=== PATIENT | female | born 1945 | race Caucasian/White ===

== ENCOUNTER 2018-10-15 14:59 | Inpatient (IN) ==
--- NOTE | 2018-10-15 15:38 | Emergency Department Note ---
Nausea/Vomiting/Diarrhea HPI - General Chief complaint: Nausea/Vomiting/Diarrhea Stated complaint: nausea, vomiting, weakness Time Seen by Provider: 10/15/18 15:36 Source: patient, family Mode of arrival: wheelchair Limitations: no limitations - History of Present Illness HPI Narrative: Patient has a 2 day history of nausea vomiting, even at the point where she was vomiting up bilious material. She states she is not able to eat or drink very much in fact has had very little in the way of liquids today. She states she is just not able to swallow them. She denies sore throat, denies chest pain feels a little bit short of breath. Has chills, generalized body aches but denies cough denies hemoptysis denies productive phlegm. No diarrhea, very few bowel movements in the last few days. She is status post cholecystectomy about 10 years ago. Also had a . Diabetic, currently on metformin and trajenta. Brought in by private vehicle. Just not doing well. Weak in general. She also has shoulder pain and aches for the last few days. Denies headache. She does have nausea. No history of colonoscopy. Never had EGD. MD complaint: nausea, vomiting - Related Data Home Medications Medication Instructions Recorded Confirmed Acetaminophen W/Codeine #3 1 tab PO QIDP PRN 01/14/16 01/19/17 [Tylenol #3] Allopurinol [Zylopriim] 300 mg PO DAILY 01/14/16 01/19/17 Aspirin [Adult Low Dose Aspirin EC] 1 tab PO DAILY 01/14/16 01/19/17 Cholecalciferol (Vitamin D3) 4,000 unit PO DAILY 01/14/16 01/19/17 [Vitamin D3] Gabapentin [Neurontin] 100 mg PO HS 01/14/16 01/19/17 Melatonin [Melatin] 6 mg PO HS 01/14/16 01/19/17 Promethazine HCl 25 - 50 mg PO BIDP PRN 01/14/16 01/19/17 Ranitidine HCl [Heartburn Relief] 150 mg PO HS 01/14/16 01/19/17 Simvastatin [Zocor] 20 mg PO HS 01/14/16 01/19/17 Tradjenta 5 mg PO DAILY 01/14/16 01/19/17 Verapamil [Calan Sr] 240 mg PO DAILY 01/14/16 01/19/17 buPROPion HCL [Bupropion HCl Sr] 150 mg PO DAILY 01/14/16 01/19/17 metFORMIN HCL [Fortamet] 1 tab PO BID 01/14/16 01/19/17 Lisinopril [Zestril] 20 mg PO DAILY 01/19/17 01/19/17 Allergies Allergy/AdvReac Type Severity Reaction Status Date / Time Penicillins Allergy Intermediate Rash Verified 10/15/18 15:02 Review of Systems All systems ED: reviewed and negative except as stated. 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 Absent: conjunctival injection ENT: normal exam, normal oropharynx, mucous membranes dry, normal external ear exam Neck: Present: normal inspection, full ROM. Absent: tenderness, meningismus, lymphadenopathy Chest: Present: normal inspection, symmetric chest wall rise Respiratory: Present: normal lung sounds bilaterally. Absent: respiratory distress Cardiovascular: Present: regular rate, normal rhythm, normal heart sounds Abdominal: Present: soft, tenderness, diminished bowel sounds Abdominal tenderness: Present: epigastrium, mild Rectal: Present: deferred Extremities: Present: normal inspection, full ROM Back: Present: normal inspection. Absent: CVA tenderness (R), CVA tenderness (L), vertebral tenderness Neurological: Present: alert, oriented X3, CN II-XII intact Psychiatric: Present: normal affect Skin: Present: warm, dry, normal color, pallor Course - Reevaluation(s) Reevaluation #1: Patient was started on IV fluids appeared red concerned that maybe she had an esophageal stricture or foreign body. We did do a barium swallow and this did s how a presbyesophagus, but not any significant stenosis. We rechecked her potassium and it was still high at 6.6. At this point she will need to be admitted to the hospital for hyperkalemia, chronic renal disease, acute on chronic. Associated with dehydration. Vital Signs Temperature 97.5 F 10/15/18 15:00 Pulse Rate 94 H 10/15/18 15:00 Respiratory Rate 20 10/15/18 15:00 Blood Pressure 115/45 10/15/18 15:00 Pulse Oximetry (%) 97 10/15/18 15:00 Temperature 97.5 F 10/15/18 15:00 Pulse Rate 84 10/15/18 16:39 Respiratory Rate 19 10/15/18 16:41 Blood Pressure 100/44 10/15/18 16:39 Pulse Oximetry (%) 88 L 10/15/18 16:39 Nausea/Vomiting/Diarrhea - [facility] Narrative Medical decision making narrative: Spoke with Dr. Perez regarding hospitalization. Final diagnosis is hyperkalemia. - Lab Data Result diagrams: 10/15/18 15:23 10/15/18 15:23 Lab Results 10/15/18 10/15/18 10/15/18 Range/Units 15:23 15:23 15:23 WBC 6.4 (4.5-11.0) K/mcL RBC 2.31 L (4.00-5.20) M/mcL Hgb 8.5 L (12.0-15.0) g/dL Hct 26.4 L (36.0-48.0) % POC Hct (36.0-48.0) % MCV 114.5 H (80.0-100.0) fL MCH 36.8 H (26.0-34.0) pg MCHC 32.2 (31.0-36.0) g/dL RDW 22.3 H (11.5-14.5) % Plt Count 113 L (140-440) K/mcL MPV 7.7 (7.4-10.4) fL Gran % 83.8 H (38.0-78.0) % Lymph % (Auto) 9.9 L (15.5-49.0) % Cand[place] % (Auto) 6.1 (1.0-12.0) % Eos % (Auto) 0.1 (0.0-7.0) % Baso % (Auto) 0.1 (0.0-2.0) % Gran # 5.4 (1.8-8.0) K/mcL Lymph # (Auto) 0.6 L (1.5-4.8) K/mcL Cand[place] # (Auto) 0.4 (0.1-0.9) K/mcL Eos # (Auto) 0 (0.0-0.7) K/mcL Baso # (Auto) 0 (0.0-0.3) K/mcL POC Sodium (133-145) mmol/L Sodium 139 (133-145) mmol/L POC Potassium (3.3-5.1) mmol/L Potassium 6.5 H* (3.3-5.1) mmol/L POC Chloride (96-108) mmol/L Chloride 106 (96-108) mmol/L Carbon Dioxide 12 L (22-30) mmol/L POC Total CO2 (22-30) mmol/L Anion Gap 21.0 H (8-16) POC BUN (8-23) mg/dl BUN 47 H (8-23) mg/dl Creatinine 3.3 H (0.6-1.1) mg/dl POC Creatinine (0.6-1.1) mg/dl GFR Calculation 13 Glucose 142 H (70-105) mg/dL POC Glucose (70-105) mg/dL Calcium 8.8 (8.6-10.4) mg/dl POC WB Ioniz Calcium (1.16-1.32) mmol/L Total Bilirubin 1.8 H (0.0-1.0) mg/dL AST 58 H (0-37) U/l ALT 28 (0-40) U/l Alkaline Phosphatase 140 H (39-117) U/L Troponin T < 0.01 (0-0.03) ng/ml Total Protein 7.0 (5.9-8.4) gm/dL Albumin 3.8 (3.2-5.2) gm/dL Globulin 3.2 (2.2-3.7) gm/dL Albumin/Globulin Ratio 1.2 (1.0-2.3) 10/15/18 Range/Units 16:52 WBC (4.5-11.0) K/mcL RBC (4.00-5.20) M/mcL Hgb (12.0-15.0) g/dL Hct (36.0-48.0) % POC Hct 27.0 L (36.0-48.0) % MCV (80.0-100.0) fL MCH (26.0-34.0) pg MCHC (31.0-36.0) g/dL RDW (11.5-14.5) % Plt Count (140-440) K/mcL MPV (7.4-10.4) fL Gran % (38.0-78.0) % Lymph % (Auto) (15.5-49.0) % Candler % (Auto) (1.0-12.0) % Eos % (Auto) (0.0-7.0) % Baso % (Auto) (0.0-2.0) % Gran # (1.8-8.0) K/mcL Lymph # (Auto) (1.5-4.8) K/mcL Candler # (Auto) (0.1-0.9) K/mcL Eos # (Auto) (0.0-0.7) K/mcL Baso # (Auto) (0.0-0.3) K/mcL POC Sodium 139 (133-145) mmol/L Sodium (133-145) mmol/L POC Potassium 6.6 H* (3.3-5.1) mmol/L Potassium (3.3-5.1) mmol/L POC Chloride 111 H (96-108) mmol/L Chloride (96-108) mmol/L Carbon Dioxide (22-30) mmol/L POC Total CO2 15 L (22-30) mmol/L Anion Gap (8-16) POC BUN 43 H (8-23) mg/dl BUN (8-23) mg/dl Creatinine (0.6-1.1) mg/dl POC Creatinine 3.6 H (0.6-1.1) mg/dl GFR Calculation Glucose (70-105) mg/dL POC Glucose 140 H (70-105) mg/dL Calcium (8.6-10.4) mg/dl POC WB Ioniz Calcium 1.09 L (1.16-1.32) mmol/L Total Bilirubin (0.0-1.0) mg/dL AST (0-37) U/l ALT (0-40) U/l Alkaline Phosphatase (39-117) U/L Troponin T (0-0.03) ng/ml Total Protein (5.9-8.4) gm/dL Albumin (3.2-5.2) gm/dL Globulin (2.2-3.7) gm/dL Albumin/Globulin Ratio (1.0-2.3) Disposition Pt seen by GRAVITY PROSPECTING OBSERVER HELPER/PA only: No Clinical Impression: Hyperkalemia Disposition: Xfer As Inpt ([facility]) Condition: Fair Referrals: Patito Davila MD [Primary Care Provider] -
[2018-10-15] MEDS ORDERED: ONDANSETRON 4 MG/2 ML VIAL IV ONE (15:40)
[2018-10-15] MEDS ORDERED: LACTATED RINGERS 1,000 ML IV ONE (15:40)
[2018-10-15 15:52] LABS: Basophils # (Auto) 0 K/mcL (0.0-0.3); Basophils % (Auto) 0.1 % (0.0-2.0); Eosinophils # (Auto) 0 K/mcL (0.0-0.7); Eosinophils % (Auto) 0.1 % (0.0-7.0); Granulocytes % (Auto) 83.8 % (38.0-78.0); Hematocrit 26.4 % (36.0-48.0); Hemoglobin 8.5 g/dL (12.0-15.0); Lymphocytes # (Auto) 0.6 K/mcL (1.5-4.8); Lymphocytes % (Auto) 9.9 % (15.5-49.0); Mean Cell Volume 114.5 fL (80.0-100.0); Mean Corpuscular HGB Conc 32.2 g/dL (31.0-36.0); Mean Platelet Volume 7.7 fL (7.4-10.4); Monocytes # (Auto) 0.4 K/mcL (0.1-0.9); Monocytes % (Auto) 6.1 % (1.0-12.0); Platelet Count 113 K/mcL (140-440); RBC 2.31 M/mcL (4.00-5.20); Red Cell Distribution Width 22.3 % (11.5-14.5); WBC 6.4 K/mcL (4.5-11.0)
[2018-10-15 16:15] LABS: ALT/SGPT 28 U/l (0-40); AST/SGOT 58 U/l (0-37); Albumin 3.8 gm/dL (3.2-5.2); Albumin/Globulin Ratio 1.2 (1.0-2.3); Alkaline Phosphatase 140 U/L (39-117); Bilirubin,Total 1.8 mg/dL (0.0-1.0); Blood Urea Nitrogen 47 mg/dl (8-23); Calcium 8.8 mg/dl (8.6-10.4); Carbon Dioxide 12 mmol/L (22-30); Chloride 106 mmol/L (96-108); Globulin 3.2 gm/dL (2.2-3.7); Glomerular Filtration Rate 13; Glucose 142 mg/dL (70-105); Potassium 6.5 mmol/L (3.3-5.1); Sodium 139 mmol/L (133-145)
[2018-10-15] MEDS ORDERED: 0.9 % SODIUM CHLORIDE 1,000 ML IV ONE (16:27)
[2018-10-15] MEDS ORDERED: INSULIN REGULAR, HUMAN 1 UNIT/0.01 ML UNIT IV ONE (16:35)
[2018-10-15] MEDS ORDERED: DEXTROSE 50% 50 ML SYRINGE IV ONE (16:36)
[2018-10-15] MEDS ORDERED: DEXTROSE 5%-1/4NS 1,000 ML IV SCH (16:45)
--- NOTE | 2018-10-15 16:59 | XRay Report ---
CLINICAL INFORMATION: Dysphagia chest pain nausea COMPARISON: Chest x-ray 06/30/2011. FINDINGS: The heart is mildly enlarged. Mediastinum is unremarkable. The pulmonary vessels are mildly distended and there is minimal interstitial edema throughout both lungs. Small bilateral pleural effusions noted IMPRESSION: Mild CHF Interpreted and Authenticated by: Severiano Rossi 10/15/18
[2018-10-15] MEDS ORDERED: CALCIUM GLUCONATE 7 MEQ in DEXTROSE 5% IN WATER 50 ML IV ONE (17:03)
[2018-10-15] MEDS ORDERED: SODIUM POLYSTYRENE SULFONATE 15 GM/60 ML SUSPENSION PO ONE (17:04)
[2018-10-15 17:05] LABS: POC Blood Urea Nitrogen 43 mg/dl (8-23); POC CO2 15 mmol/L (22-30); POC Calcium, Ionized 1.09 mmol/L (1.16-1.32); POC Chloride 111 mmol/L (96-108); POC Creatinine 3.6 mg/dl (0.6-1.1); POC Glucose, Random 140 mg/dL (70-105); POC Potassium 6.6 mmol/L (3.3-5.1); POC Sodium 139 mmol/L (133-145)
--- NOTE | 2018-10-15 17:14 | XRay Report ---
CLINICAL INFORMATION: Nausea TECHNIQUE: Single contrast barium was ingested under fluoroscopic observation while spot films were obtained of the esophagus during deglutition in both the upright. FINDINGS: Tongue elevation and palate depression are normal resulting in propulsion of the barium bolus into the pharynx. The nasopharyngeus closes normally. Pharyngeal stripping and cricopharyngeal opening. The primary peristaltic wave is interrupted by multiple tertiary contractions patible with presbyesophagus. The lower esophageal sphincter opens normally. The epiglottis and vocal cords close normally - no evidence of descending aspiration. There is a Schatzki's ring at the GE junction which narrows the esophageal lumen by less than 20%. The esophagus is, otherwise, normal in contour and caliber without evidence of esophagitis or focal lesion. No hiatal hernia or reflux could be induced. IMPRESSION: 1. Moderate presbyesophagus 2. Schatzki's ring at the GE junction resulting in only mild luminal narrowing - 20% Interpreted and Authenticated by: Severiano Rossi 10/15/18
[2018-10-15] MEDS ORDERED: CALCIUM GLUCONATE 4.65 MEQ/10 ML VIAL ONE (17:15)
[2018-10-15] MEDS ORDERED: SODIUM BICARBONATE ADULT 50 MEQ/50 ML SYRINGE IV STA (18:01)
--- NOTE | 2018-10-15 18:47 | Internal Med History&Physical ---
Medical - H&P: HPI Patient information: Note initiated : 10/15/18 at 6:41 pm Service Date, if different from initiated Date: [] Patient: Sissy Isaac 73 y/o F admitted on for nausea, vomiting, weakness. Chief Complaint: [] History of present illness: Ms. Isaac is a 73 year old F The ED not feeling well complaining of weakness and nausea. Patient states that she went to bed feeling fine on Monday night. However early Monday morning she woke up and had to get help to go the bathroom she is also nauseous. Throughout the day as she did have some vomiting earlier in the day which she describes bilious. But in the weakness improved a little bit and later that night she was able to keep down some shrimp. However the next morning she had a similar symptoms very weak and nauseous and had some vomiting denies any blood in her vomit or her stools. She denies any abdominal pain. Denies chest pain. Denies any recent sick contacts or traveling. She was found in the ED to have elevated creatinine above baseline as well as hyperkalemia with a potassium 6.5. EKG no spiked T waves does have a prolonged QRS, unknown baseline, troponin was unremarkable. She does complain of some foot swelling the past couple months. And some occasional shortness of breath. She takes metformin and Tradjenta for diabetes. Barium swallow was done in the ED which was unremarkable chest x-ray with some pulmonary edema. Denies any cardiac history. Is not on any potassium supplements, but is on lisinopril. Review of Systems: Pertinent positives as above. Denies headache/fever/chills/chest or abdominal pain/diarrhea. Remaining 10 point review of system reviewed negative Medical - H&P: PMH Medical history: Past medical history: Diabetes with neuropathy Obesity Chronic kidney disease IIIB Hypertension/hyperlipidemia Chronic low back pain GERD Depression Gout Iron deficiency anemia Past surgical history: Cholecystectomy tonsillectomy Family history: Mother heart disease father is healthy Social history: Patient quit smoking 2007 denies alcohol use ablates with cane lives at home with Medical - H&P: Meds Home Medications Medication Instructions Recorded Confirmed Type Acetaminophen W/Codeine #3 1 tab PO QIDP PRN 01/14/16 01/19/17 History [Tylenol #3] Allopurinol [Zylopriim] 300 mg PO DAILY 01/14/16 01/19/17 History Aspirin [Adult Low Dose Aspirin EC] 1 tab PO DAILY 01/14/16 01/19/17 History Cholecalciferol (Vitamin D3) 4,000 unit PO DAILY 01/14/16 01/19/17 History [Vitamin D3] Gabapentin [Neurontin] 100 mg PO HS 01/14/16 01/19/17 History Melatonin [Melatin] 6 mg PO HS 01/14/16 01/19/17 History Promethazine HCl 25 - 50 mg PO BIDP PRN 01/14/16 01/19/17 History Ranitidine HCl [Heartburn Relief] 150 mg PO HS 01/14/16 01/19/17 History Simvastatin [Zocor] 20 mg PO HS 01/14/16 01/19/17 History Tradjenta 5 mg PO DAILY 01/14/16 01/19/17 History Verapamil [Calan Sr] 240 mg PO DAILY 01/14/16 01/19/17 History buPROPion HCL [Bupropion HCl Sr] 150 mg PO DAILY 01/14/16 01/19/17 History metFORMIN HCL [Fortamet] 1 tab PO BID 01/14/16 01/19/17 History Lisinopril [Zestril] 20 mg PO DAILY 01/19/17 01/19/17 History Allergies Allergy/AdvReac Type Severity Reaction Status Date / Time Penicillins Allergy Intermediate Rash Verified 10/15/18 15:02 Medical - H&P: Exam - Constitutional Vitals: Temp Pulse Resp BP Pulse Ox 97.5 F 103 H 19 136/56 96 10/15/18 15:00 10/15/18 17:46 10/15/18 17:46 10/15/18 17:46 10/15/18 17:46 Exam: General: Alert, Awake, No acute Distress, obese Eyes/N/T: EOMI, PEERL, Head/Neck: neck supple, normocephalic atraumatic CV: RRR, No murmurs, normal s1/s2 Pulm: Bibasilar rales, no wheezing Abd: soft, nontender, +BS x4 Ext: no clubbing/cyanosis, 2+ b/l LE edema Neuro: Alert, no focal deficits, moves all extremities, CN 2-12 grossly intact, symmetrical strength b/l upper/lower, sensations intact b/l upper/lower Skin: warm/dry Medical - H&P: Reslt - Labs CBC & Chem 7: 10/15/18 15:23 10/15/18 15:23 Labs: Short CBC 10/15/18 Range/Units 15:23 WBC 6.4 (4.5-11.0) K/mcL Hgb 8.5 L (12.0-15.0) g/dL Hct 26.4 L (36.0-48.0) % Plt Count 113 L (140-440) K/mcL BMP 10/15/18 15:23 Sodium 139 Potassium 6.5 H* Chloride 106 Carbon Dioxide 12 L BUN 47 H Creatinine 3.3 H Glucose 142 H Calcium 8.8 Cardiac Enzymes 10/15/18 Range/Units 15:23 Troponin T < 0.01 (0-0.03) ng/ml Liver Function 10/15/18 Range/Units 15:23 Total Bilirubin 1.8 H (0.0-1.0) mg/dL AST 58 H (0-37) U/l ALT 28 (0-40) U/l Alkaline Phosphatase 140 H (39-117) U/L Albumin 3.8 (3.2-5.2) gm/dL - Impressions Chest x-ray pulmonary edema Medical - H&P: A/P - Narrative A/P Narrative: A: *Hyperkalemia: 2/2 meds & SHERRELL *SHERRELL on CKD IIIb: *Anemia, chronic [place], but macrocytic: no gross bleeding -Has received IV iron by 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
[2018-10-15] MEDS ORDERED: PROCHLORPERAZINE 10 MG/2 ML VIAL IV PRN (19:56)
[2018-10-15] MEDS ORDERED: IPRATROPIUM/ALBUTEROL 3 ML AMPUL.NEB NEB PRN (19:56)
[2018-10-15] MEDS ORDERED: LACTULOSE 20 GM/30 ML ORAL.SOL PO PRN (19:56)
[2018-10-15] MEDS ORDERED: SENNOSIDES 1 TABLET PO PRN (19:56)
[2018-10-15] MEDS ORDERED: DEXTROSE 31 GM ORAL.SUSP PO PRN (19:56)
[2018-10-15] MEDS ORDERED: ACETAMINOPHEN 325 MG TABLET PO PRN (19:56)
[2018-10-15] MEDS ORDERED: ONDANSETRON 4 MG/2 ML VIAL IV PRN (19:56)
[2018-10-15] MEDS ORDERED: POLYETHYLENE GLYCOL 3350 17 GM PACKET PO PRN (19:56)
[2018-10-15] MEDS ORDERED: FUROSEMIDE 100 MG/10 ML VIAL IV ONE (19:56)
[2018-10-15] MEDS ORDERED: SODIUM BICARBONATE 50 MEQ/50 ML VIAL IV STA (19:56)
[2018-10-15] MEDS ORDERED: DEXTROSE 50% 50 ML VIAL IV PRN (19:56)
[2018-10-15] MEDS ORDERED: FAMOTIDINE 20 MG TABLET PO SCH (21:00)
[2018-10-15] MEDS: INSULIN LISPRO 1 UNIT/0.01 ML UNIT SQ SCH (21:00)
[2018-10-15] MEDS: DOCUSATE SODIUM 100 MG CAPSULE PO SCH (21:00)
[2018-10-15] MEDS: HEPARIN 5,000 UNIT/ML VIAL SQ SCH (21:00)
[2018-10-15] MEDS: 0.9 % SODIUM CHLORIDE 10 ML SYRINGE IV SCH (21:00)
--- NOTE | 2018-10-16 03:31 | Ultrasound Report ---
CLINICAL INFORMATION: Acute renal failure COMPARISON: 01/27/2011 renal ultrasound FINDINGS: Both kidneys are normal in size, position and configuration: The right is 9.6 x 4.7 cm and the left 9.6 x 4.2 cm. Parenchymal echotexture is moderately elevated compatible with medical renal disease. No focal renal lesions - no stones masses or hydronephrosis. Urinary bladder volume is 219 cc. Patient was unable to void IMPRESSION: Moderately hyperechoic kidneys compatible with medical renal disease. Interpreted and Authenticated by: Severiano Rossi 10/16/18
[2018-10-16] MEDS: 0.9 % SODIUM CHLORIDE 10 ML SYRINGE IV SCH ×3 (05:14→20:21)
[2018-10-16 05:56] LABS: Basophils # (Auto) 0 K/mcL (0.0-0.3); Basophils % (Auto) 0.1 % (0.0-2.0); Eosinophils # (Auto) 0 K/mcL (0.0-0.7); Eosinophils % (Auto) 0.1 % (0.0-7.0); Granulocytes % (Auto) 82.4 % (38.0-78.0); Hematocrit 23.4 % (36.0-48.0); Hemoglobin 7.6 g/dL (12.0-15.0); Lymphocytes # (Auto) 0.5 K/mcL (1.5-4.8); Lymphocytes % (Auto) 12.1 % (15.5-49.0); Mean Cell Volume 114.1 fL (80.0-100.0); Mean Corpuscular HGB Conc 32.5 g/dL (31.0-36.0); Mean Platelet Volume 7.9 fL (7.4-10.4); Monocytes # (Auto) 0.2 K/mcL (0.1-0.9); Monocytes % (Auto) 5.3 % (1.0-12.0); Platelet Count 69 K/mcL (140-440); RBC 2.05 M/mcL (4.00-5.20); Red Cell Distribution Width 22.2 % (11.5-14.5); WBC 4.4 K/mcL (4.5-11.0)
[2018-10-16 06:00] LABS: ALT/SGPT 43 U/l (0-40); AST/SGOT 98 U/l (0-37); Albumin 3.2 gm/dL (3.2-5.2); Alkaline Phosphatase 118 U/L (39-117); Bilirubin,Direct 0.5 mg/dL (0.0-0.3); Bilirubin,Total 1.3 mg/dL (0.0-1.0); Blood Urea Nitrogen 49 mg/dl (8-23); Calcium 8.4 mg/dl (8.6-10.4); Carbon Dioxide 22 mmol/L (22-30); Chloride 107 mmol/L (96-108); Gamma Glutamyl Transpeptidase 205 U/L (5-36); Globulin 3.1 gm/dL (2.2-3.7); Glomerular Filtration Rate 14; Glucose 149 mg/dL (70-105); Lactate Dehydrogenase 284 U/L (94-250); Magnesium 1.8 mg/dL (1.6-2.5); Phosphorous 3.5 mg/dL (2.7-4.5); Potassium 4.4 mmol/L (3.3-5.1); Sodium 143 mmol/L (133-145); Triglycerides 78 mg/dl (<150); Uric Acid 6.1 mg/dL (2.5-8.0)
[2018-10-16] MEDS ORDERED: PROMETHAZINE 25 MG TABLET PO PRN ×2 (07:39→11:06)
[2018-10-16] MEDS ORDERED: ACETAMINOPHEN W/CODEINE #3 1 TABLET PO PRN (07:39)
--- NOTE | 2018-10-16 07:55 | Internal Med Progress Note ---
Medical - PN: Subj Patient information: Note initiated : 10/16/18 at 7:42 am Service Date, if different from initiated Date: [] Patient: Sissy Isaac 73 y/o F admitted on 10/15/18 for nausea, vomiting, weakness. Chief Complaint: [] Interval history: Ms. Isaac is a 73 year old F The ED not feeling well complaining of weakness and nausea. Patient states that she went to bed feeling fine on Monday night. However early Monday morning she woke up and had to get help to go the bathroom she is also nauseous. Throughout the day as she did have some vomiting earlier in the day which she describes bilious. But in the weakness improved a little bit and later that night she was able to keep down some shrimp. However the next morning she had a similar symptoms very weak and nauseous and had some vomiting denies any blood in her vomit or her stools. She denies any abdominal pain. Denies chest pain. Denies any recent sick contacts or traveling. She was found in the ED to have elevated creatinine above baseline as well as hyperkalemia with a potassium 6.5. EKG no spiked T waves does have a prolonged QRS, unknown baseline, troponin was unremarkable. She does complain of some foot swelling the past couple months. And some occasional shortness of breath. She takes metformin and Tradjenta for diabetes. Barium swallow was done in the ED which was unremarkable chest x-ray with some pulmonary edema. Denies any cardiac history. Is not on any potassium supplements, but is on lisinopril. 10/16 Feeling better today. Diuresed well last night however she drank quite a bit. Diarrhea after Kayexalate. Slept okay. No other events. Review of Systems: denies headache/fever/chills/nausea/vomiting/chest or abdominal pain/cough/dyspnea. Otherwise see above. - Constitutional Vitals: Vital Signs Temp Pulse Resp BP Pulse Ox 100.0 F H 112 H 26 H 104/54 93 10/16/18 06:01 10/16/18 02:00 10/16/18 06:01 10/16/18 06:01 10/16/18 06:01 Period Temp Pulse Resp BP Sys/Helms Pulse Ox Last 24 Hr 97.5 F-100.7 F 79-119 16-32 75-136/37-100 82-99 Intake and Output 10/15/18 10/16/18 10/16/18 21:59 05:59 13:59 Intake Total 1065.0537 710 Output Total 340 1050 130 Balance 725.0537 -340 -130 Weight 91.2 kg Intake & Output: Intake & Output 10/15/18 10/16/18 10/16/18 21:59 05:59 13:59 Intake Total 1065.0537 710 Output Total 340 1050 130 Balance 725.0538 -340 -130 Weight 91.2 kg Intake: IV 1065.0537 Sodium Chloride 0.9% 1,000 ml @ 1000 Wide Open IV BOLUS ONE Rx#: [id number] Calcium Gluconate 7 Meq In 65.0537 Dextrose 5% in Water 50 ml @ 200 mls/hr IV ONCE ONE Rx#: [id number] Oral 710 Output: Urine Catheter Amount 340 1050 130 Other: Urine Appearance Clear Clear Uretheral (Easley) Clear Urine Color Dark Yellow Bright Yellow Bright Yellow Uretheral (Easley) Dark Yellow Bright Yellow Stool Size Moderate Copious Stool Color Brown Brown Yellow Stool Consistency Soft Liquid Formed Watery Liquid Watery # Bowel Movements 1 1 # of times incontinent of 1 Bowels Exam: General: Alert, Awake, No acute Distress, obese Eyes/N/T: EOMI, , Head/Neck: neck supple, CV: RRR, No murmurs, Pulm: Bibasilar rales much improved, no wheezing Abd: soft, nontender, +BS x4 Ext: no clubbing/cyanosis, 1+ b/l LE edema improved Neuro: Alert, no focal deficits, moves all extremities, Skin: warm/dry Medical - PN: Obj Da - Labs CBC & Chem 7: 10/16/18 03:21 10/16/18 03:21 Labs: Abnormal Lab Results 10/16/18 10/16/18 10/15/18 03:21 03:21 20:00 WBC 4.4 L RBC 2.05 L Hgb 7.6 L Hct 23.4 L POC Hct MCV 114.1 H MCH 37.0 H RDW 22.2 H Plt Count 69 L Gran % 82.4 H Lymph % (Auto) 12.1 L Lymph # (Auto) 0.5 L POC Potassium Potassium 5.7 H POC Chloride Carbon Dioxide POC Total CO2 Anion Gap POC BUN BUN 49 H Creatinine 3.1 H POC Creatinine Glucose 149 H POC Glucose Calcium 8.4 L POC WB Ioniz Calcium Total Bilirubin 1.3 H Direct Bilirubin 0.5 H GGT 205 H AST 98 H ALT 43 H Alkaline Phosphatase 118 H Lactate Dehydrogenase 284 H Vitamin B12 10/15/18 10/15/18 10/15/18 16:52 15:23 15:23 WBC RBC 2.31 L Hgb 8.5 L Hct 26.4 L POC Hct 27.0 L MCV 114.5 H MCH 36.8 H RDW 22.3 H Plt Count 113 L Gran % 83.8 H Lymph % (Auto) 9.9 L Lymph # (Auto) 0.6 L POC Potassium 6.6 H* Potassium 6.5 H* POC Chloride 111 H Carbon Dioxide 12 L POC Total CO2 15 L Anion Gap 21.0 H POC BUN 43 H BUN 47 H Creatinine 3.3 H POC Creatinine 3.6 H Glucose 142 H POC Glucose 140 H Calcium POC WB Ioniz Calcium 1.09 L Total Bilirubin 1.8 H Direct Bilirubin GGT AST 58 H ALT Alkaline Phosphatase 140 H Lactate Dehydrogenase Vitamin B12 10/15/18 10:30 WBC RBC Hgb Hct POC Hct MCV MCH RDW Plt Count Gran % Lymph % (Auto) Lymph # (Auto) POC Potassium Potassium POC Chloride Carbon Dioxide POC Total CO2 Anion Gap POC BUN BUN Creatinine POC Creatinine Glucose POC Glucose Calcium POC WB Ioniz Calcium Total Bilirubin Direct Bilirubin GGT AST ALT Alkaline Phosphatase Lactate Dehydrogenase Vitamin B12 150.0 L Meds: Medications Acetaminophen (Tylenol) 650 mg PO Q6HP PRN PRN Reason: PAIN/FEVER > 101 Albuterol/Ipratropium (Duoneb) 3 ml NEB Q4HP PRN PRN Reason: Shortness Of Breath Dextrose (Dextrose 50%) 0 ml IV UD PRN PRN Reason: Hypoglycemia Diagnostic Test (Pha) (Accu-Chek) 1 each FS ACHS [facility] Last Admin: 10/15/18 21:00 Dose: 1 each Documented by: Docusate Sodium (Colace) 100 mg PO BID [facility] Last Admin: 10/15/18 21:00 Dose: 100 mg Documented by: Famotidine (Pepcid) 20 mg PO HS [facility] Last Admin: 10/15/18 21:00 Dose: 20 mg Documented by: Glucose (Insta-Glucose) 15 gm PO PRN PRN PRN Reason: Hypoglycemia Heparin Sodium (Porcine) (Heparin) 5,000 unit SQ Q12 [facility] Last Admin: 10/15/18 21:00 Dose: 5,000 unit Documented by: Insulin Human Lispro (Humalog) 0 unit SQ ACHS [facility]; Protocol Last Admin: 10/15/18 21:00 Dose: Not Given Documented by: Lactulose (Cephulac) 10 gm PO DAILYP PRN PRN Reason: Constipation Ondansetron HCl (Zofran) 4 mg IV Q4HP PRN PRN Reason: Nausea And Vomiting Polyethylene Glycol (Miralax) 17 gm PO DAILYP PRN PRN Reason: Constipation Prochlorperazine (Compazine) 10 mg IV Q6HP PRN PRN Reason: Nausea And Vomiting Senna (Senokot) 2 tab PO HSP PRN PRN Reason: Constipation Sodium Chloride (Saline Flush) 10 ml IV Q8 [facility] Last Admin: 10/16/18 05:14 Dose: 10 ml Documented by: Medical - PN: A/P - Time Spent With Patient Total time spent is greater than 50% in coordination of care (as documented) at patient's floor/unit and/or counseling patient: - Narrative A/P Narrative: A: *Hyperkalemia: 2/2 meds & SHERRELL -REsovled *SHERRELL on CKD IIIb: -renal u/s -3.1<3.3 *Anemia, chronic [place], but macrocytic: no gross bleeding -Has received IV iron by her production department 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 *B12 Deficiency *Metabolic acidosis: resolved *Pulm/peripheral edema: concern for cardiomyopathy - *Fever (Tm 100.7 last night): unknown souce, UA pending, also PCT and man diff - *DM w/neuropathy: has been on metformin/tradjenta *Obesity: *HTN/HLD: on verapamil and ACEI *Chronic low back pain: *GERD: *Depression: *Gout: Allopurinol will need to be renally dosed *Thrombocytopenia, chronic: P: -s/p iv lasix, defer further until d/w Nephro, fluid restrict -nephro consult -echo & renal us/ -hold ACEI, hold verapamil (clarify she is taking) for low BP -Renally dose allopurinol and gabapentin -d/c metformin and upon discharge, cont Tradjenta outpt, SSI while inpt -b12 supp SQ -Cefepime/flagyl, pending infectious w/u. d/c abx if unremarkable -pt/ot -SSI -ppx: heparin(monitor platelets, if <50k then stop)/home h2 Medical - PN: Qual - Stroke Symptom Onset Unknown: No - VTE Deep Vein Thrombosis/Pulmonary Embolism Present on Admission: No
[2018-10-16] MEDS ORDERED: CYANOCOBALAMIN 1,000 MCG/ML VIAL IM SCH ×2 (08:00→12:00)
[2018-10-16] MEDS: INSULIN LISPRO 1 UNIT/0.01 ML UNIT SQ SCH ×4 (08:05→20:20)
[2018-10-16] MEDS ORDERED: buPROPion 150 MG TAB.XL.24H PO SCH (09:00)
[2018-10-16] MEDS ORDERED: ALLOPURINOL 100 MG TABLET PO SCH (09:00)
[2018-10-16] MEDS ORDERED: CEFEPIME 1 GM VIAL IV SCH (09:00)
--- NOTE | 2018-10-16 09:25 | Nephrology Progress Note ---
Subjective Patient information: Note initiated : 10/16/18 at 9:23 am Service Date, if different from initiated Date: [] Patient: Sissy Isaac 73 y/o F admitted on 10/15/18 for nausea, vomiting, weakness. Chief Complaint: Reports that she is breathing a little bit better. Objective - Vital Signs Vital signs: Vital Signs Temp Pulse Pulse Resp BP BP Pulse Ox 10/16/18 06:01 100.0 F H 26 H 104/54 93 10/16/18 05:00 100.0 F H 21 103/53 96 10/16/18 04:00 99.9 F H 23 H 106/51 95 10/16/18 03:02 100.1 F H 21 108/55 95 10/16/18 02:00 100.0 F H 112 H 18 91/46 95 10/16/18 01:31 99.9 F H 21 93/46 95 10/16/18 01:00 100.0 F H 17 91/43 95 10/16/18 00:00 100.0 F H 115 H 21 97/45 94 10/15/18 23:07 117 H 18 93 10/15/18 23:05 100.1 F H 117 H 26 H 106/51 94 10/15/18 22:21 100.3 F H 119 H 27 H 94/51 98 10/15/18 22:05 100.1 F H 117 H 17 85/42 96 10/15/18 22:04 100.1 F H 116 H 22 90/44 94 10/15/18 22:01 100.1 F H 116 H 25 H 75/39 91 10/15/18 20:01 115 H 20 110/46 93 10/15/18 19:56 100.7 F H 114 H 23 H 111/37 92 10/15/18 19:55 115/49 10/15/18 19:39 100.7 F H 112 H 20 111/37 92 10/15/18 19:31 21 115/49 10/15/18 19:16 23 H 99/53 10/15/18 19:04 22 108/89 10/15/18 19:01 27 H 106/66 10/15/18 18:46 26 H 106/54 10/15/18 18:31 108 H 25 H 118/95 92 10/15/18 18:16 108 H 22 127/100 94 10/15/18 18:03 107 H 29 H 109/47 96 10/15/18 17:46 103 H 19 136/56 96 10/15/18 17:31 102 H 25 H 119/50 96 10/15/18 17:23 101 H 21 115/58 96 10/15/18 17:15 100 H 24 H 96/77 98 10/15/18 16:41 19 10/15/18 16:39 84 32 H 100/44 88 L 10/15/18 16:31 81 16 79/60 95 10/15/18 16:16 79 18 96/84 94 10/15/18 16:01 82 17 91/46 95 10/15/18 15:46 19 84/69 10/15/18 15:31 95 H 27 H 100/57 99 10/15/18 15:16 103 H 17 99/43 82 L 10/15/18 15:12 96 H 19 94/56 99 10/15/18 15:00 97.5 F 94 H 20 115/45 97 Intake and Output 10/15/18 10/16/18 10/16/18 21:59 05:59 13:59 Intake Total 1065.0991 710 120 Output Total 340 1050 130 Balance 503.8587 -340 -10 Intake: IV 1065.0537 Sodium Chloride 0.9% 1,000 ml @ 1000 Wide Open IV BOLUS ONE Rx#: [id number] Calcium Gluconate 7 Meq In 65.0537 Dextrose 5% in Water 50 ml @ 200 mls/hr IV ONCE ONE Rx#: [id number] Oral 710 120 Output: Urine Catheter Amount 340 1050 130 Other: Meal Breakfast Percent of Meal Consumed 75% Feeding Ability Assist with Tray Set Up Urine Appearance Clear Clear Uretheral (Easley) Clear Urine Color Dark Yellow Bright Yellow Bright Yellow Uretheral (Easley) Dark Yellow Bright Yellow Stool Size Moderate Copious Small Stool Color Brown Brown Brown Yellow Yellow Green Stool Consistency Soft Liquid Liquid Formed Watery Watery Liquid Loose Watery # Bowel Movements 1 1 1 # of times incontinent of 1 Bowels Weight 201 lb 1 oz Intake & Output: Intake & Output 10/15/18 10/16/18 10/16/18 21:59 05:59 13:59 Intake Total 1065.0537 710 120 Output Total 340 1050 130 Balance 725.0537 -340 -10 Weight 201 lb 1 oz Intake: IV 1065.0537 Sodium Chloride 0.9% 1,000 ml @ 1000 Wide Open IV BOLUS ONE Rx#: [id number] Calcium Gluconate 7 Meq In 65.0537 Dextrose 5% in Water 50 ml @ 200 mls/hr IV ONCE ONE Rx#: [id number] Oral 710 120 Output: Urine Catheter Amount 340 1050 130 Other: Meal Breakfast Percent of Meal Consumed 75% Feeding Ability Assist with Tray Set Up Urine Appearance Clear Clear Uretheral (Easley) Clear Urine Color Dark Yellow Bright Yellow Bright Yellow Uretheral (Easley) Dark Yellow Bright Yellow Stool Size Moderate Copious Small Stool Color Brown Brown Brown Yellow Yellow Green Stool Consistency Soft Liquid Liquid Formed Watery Watery Liquid Loose Watery # Bowel Movements 1 1 1 # of times incontinent of 1 Bowels - General Appearance General appearance: well-nourished EENT: ATNC Neck: no JVD Respiratory: no kyphosis Cardiology: no murmurs, edema Gastrointestinal: normoactive bowel sounds - Lab 10/16/18 03:21 10/16/18 03:21 Most recent lab results Calcium 8.4 mg/dl (8.6-10.4) L 10/16/18 03:21 Phosphorus 3.5 mg/dL (2.7-4.5) 10/16/18 03:21 Magnesium 1.8 mg/dL (1.6-2.5) 10/16/18 03:21 Assessment and Plan (1) Hyperkalemia Status: Acute Comment: SHERRELL. Not clear what the etiology is. Lisinopril is on hold and the creatinine might be slightly better. US is ok. Urine tests pending.
--- NOTE | 2018-10-16 09:29 | XRay Report ---
CLINICAL INFORMATION: CHF - follow-up COMPARISON: 10/15/2018 FINDINGS: Moderate cardiomegaly is unchanged. Mediastinum is unremarkable. The pulmonary vessels have decreased slightly and are only mildly distended. Interstitial edema has almost cleared. Mild bibasilar atelectasis noted. IMPRESSION: Minimal CHF - improving Mild bibasilar atelectasis - new Interpreted and Authenticated by: Severiano Rossi 10/16/18
[2018-10-16 09:37] LABS: Appearance,Urine CLEAR; Bacteria,Urine 0 /hpf (0); Bilirubin,Urine NEG (NEG); Color,Urine YELLOW; Culture Indicated,Urine YES; Glucose,Urine (UA) NEGATIVE (NEG); Ketones,Urine NEG (NEG); Leukocyte Esterase,Urine NEG /uL (NEG); Mucus,Urine FEW /hpf (0); Nitrate,Urine NEG (NEG); Protein,Urine NEG (NEG); Specific Gravity,Urine 1.011 (1.000-1.035); Urine Amorphous Crystals FEW /hpf (0); Urine Blood >=1.0 mg/dL (<0.03); Urine Hyaline Cast 1 /lpf (0-2); Urine RBC 84 /hpf (0-1); Urine Squamous Epithelial Cell 0 /hpf (0-4); Urine WBC 16 /hpf (0-4); Urobilinogen,Urine NEG (NEG)
[2018-10-16] MEDS: DOCUSATE SODIUM 100 MG CAPSULE PO SCH ×2 (09:47→20:20)
[2018-10-16] MEDS: HEPARIN 5,000 UNIT/ML VIAL SQ SCH (10:01)
[2018-10-16 10:52] LABS: Anisocytosis 2+ (NONE SEEN); Basophilic Stippling OCC (NONE SEEN); Hypochromasia 1+ (NONE SEEN); Lymphocytes % 13 % (15-49); Macrocytosis 3+ (NONE SEEN); Monocytes % (Manual) 6 % (1-12); Platelet Estimate DECREASED (NORMAL); RBC Morphology ABNORM (NORMAL); Segmented Neutrophils % 81 % (38-78)
[2018-10-16] MEDS ORDERED: IPRATROPIUM/ALBUTEROL 3 ML AMPUL.NEB NEB PRN (11:06)
[2018-10-16] MEDS ORDERED: DEXTROSE 31 GM ORAL.SUSP PO PRN (11:06)
[2018-10-16] MEDS ORDERED: ONDANSETRON 4 MG/2 ML VIAL IV PRN (11:06)
[2018-10-16] MEDS ORDERED: SENNOSIDES 1 TABLET PO PRN (11:06)
[2018-10-16] MEDS ORDERED: PROCHLORPERAZINE 10 MG/2 ML VIAL IV PRN (11:06)
[2018-10-16] MEDS ORDERED: LACTULOSE 20 GM/30 ML ORAL.SOL PO PRN (11:06)
[2018-10-16] MEDS ORDERED: DEXTROSE 50% 50 ML VIAL IV PRN (11:06)
[2018-10-16] MEDS ORDERED: POLYETHYLENE GLYCOL 3350 17 GM PACKET PO PRN (11:06)
--- NOTE | 2018-10-16 13:54 | Cat Scan Report ---
CLINICAL INFORMATION: Nausea, vomiting and weakness COMPARISON: None. TECHNIQUE: 0.625 mm helical slices were obtained from the mid heart through the subtrochanteric regions. Following reconstruction, 2.5 mm sagittal, coronal and axial reformatted images were processed and reviewed at bone and soft tissue windows.The exam was performed using radiation dose optimization techniques including, but not limited to, automated exposure control, adjustment of the mA and/or kV according to patient size and use of iterative reconstruction technique. FINDINGS: Dense enteric contrast is scattered throughout the small and large bowel from an esophagram performed one day earlier. Small bilateral pleural effusions and subsegmental consolidated atelectasis or infiltrate in the posterior right lower lobe with minimal atelectasis in the posterior left lower lobe appreciated. The heart is moderately enlarged. Noncontrasted liver is decreased in size and demonstrate inhomogeneous attenuation which is suggestive, but not diagnostic of cirrhosis. The gallbladder is surgically absent. Intrahepatic and common bile ducts are normal caliber: CBD is 5 mm. Both kidneys lower limits of normal in size: the left is 9.6 cm in length and the right is 9.2 cm in length. No focal renal lesions. The pancreas is unremarkable. The spleen is moderately enlarged: 16.3 x 12 x 7 cm. There are mildly enlarged varices in the peripancreatic splenic and gastric regions. A small amount of ascites is seen in the true pelvis. The aorta contains atherosclerotic plaque, but is normal in caliber. Stomach, small and large bowel are symmetrically dilated compatible with ileus. Pelvic images show a Easley catheter decompressing the urinary bladder and in satisfactory position. No focal bladder lesions. The uterus slightly retroflexed but normal postmenopausal size: 5.1 x 2.2 cm. Neither ovary is identified likely atrophic. Bone windows show severe degenerative disc and facet disease throughout the lumbar spine - no focal osseous lesions. IMPRESSION: 1. Liver is decreased in size and inhomogeneous suggestive, but not diagnostic, of cirrhosis. Please correlate with LFTs and other clinical history. If clinically indicated, consider ultrasound-guided biopsy for tissue 2. Moderate splenomegaly with varices in the perisplenic, peripancreatic and gastric region. Small amount of ascites noted in the deep true pelvis 3. Small bilateral pleural effusions with subsegmental atelectasis both posterior lower lobes 4. Moderate cardiomegaly Interpreted and Authenticated by: Sevreiano Rossi 10/16/18
[2018-10-16] MEDS ORDERED: metroNIDAZOLE 500 MG TABLET PO SCH (14:00)
[2018-10-16] MEDS: metroNIDAZOLE 500 MG TABLET PO SCH ×2 (14:32→21:36)
[2018-10-16] MEDS: MELATONIN 3 MG TABLET PO SCH (20:20)
[2018-10-16] MEDS: FAMOTIDINE 20 MG TABLET PO SCH (20:20)
[2018-10-16] MEDS: SIMVASTATIN 20 MG TABLET PO SCH (20:20)
[2018-10-16] MEDS: GABAPENTIN 100 MG CAPSULE PO SCH (20:20)
[2018-10-16] MEDS: ACETAMINOPHEN W/CODEINE #3 1 TABLET PO PRN (20:34)
[2018-10-16] MEDS ORDERED: SIMVASTATIN 20 MG TABLET PO SCH (21:00)
[2018-10-16] MEDS ORDERED: GABAPENTIN 100 MG CAPSULE PO SCH (21:00)
[2018-10-16] MEDS ORDERED: HEPARIN 5,000 UNIT/ML VIAL SQ SCH (21:00)
[2018-10-16] MEDS ORDERED: MELATONIN 3 MG TABLET PO SCH (21:00)
[2018-10-16] MEDS: ACETAMINOPHEN 325 MG TABLET PO PRN (23:46)
[2018-10-17 00:17] LABS: Basophils # (Auto) 0 K/mcL (0.0-0.3); Basophils % (Auto) 0.3 % (0.0-2.0); Eosinophils # (Auto) 0 K/mcL (0.0-0.7); Eosinophils % (Auto) 1.2 % (0.0-7.0); Granulocytes % (Auto) 64.5 % (38.0-78.0); Hematocrit 23.7 % (36.0-48.0); Hemoglobin 7.6 g/dL (12.0-15.0); Lymphocytes # (Auto) 0.9 K/mcL (1.5-4.8); Lymphocytes % (Auto) 25.6 % (15.5-49.0); Mean Cell Volume 112.9 fL (80.0-100.0); Mean Corpuscular HGB Conc 32.2 g/dL (31.0-36.0); Mean Platelet Volume 7.5 fL (7.4-10.4); Monocytes # (Auto) 0.3 K/mcL (0.1-0.9); Monocytes % (Auto) 8.4 % (1.0-12.0); Platelet Count 71 K/mcL (140-440); Red Cell Distribution Width 22.1 % (11.5-14.5); WBC 3.5 K/mcL (4.5-11.0)
[2018-10-17 00:42] LABS: Blood Urea Nitrogen 47 mg/dl (8-23); Carbon Dioxide 24 mmol/L (22-30); Chloride 101 mmol/L (96-108); Glomerular Filtration Rate 20; Glucose 202 mg/dL (70-105); Potassium 3.1 mmol/L (3.3-5.1); Sodium 136 mmol/L (133-145)
[2018-10-17] MEDS: metroNIDAZOLE 500 MG TABLET PO SCH (05:27)
[2018-10-17] MEDS: 0.9 % SODIUM CHLORIDE 10 ML SYRINGE IV SCH ×3 (05:28→21:05)
[2018-10-17 06:30] LABS: ALT/SGPT 32 U/l (0-40); AST/SGOT 47 U/l (0-37); Albumin 2.8 gm/dL (3.2-5.2); Alkaline Phosphatase 111 U/L (39-117); Bilirubin,Direct 0.3 mg/dL (0.0-0.3); Bilirubin,Total 0.8 mg/dL (0.0-1.0); Blood Urea Nitrogen 47 mg/dl (8-23); Calcium 7.8 mg/dl (8.6-10.4); Carbon Dioxide 25 mmol/L (22-30); Chloride 104 mmol/L (96-108); Gamma Glutamyl Transpeptidase 188 U/L (5-36); Globulin 2.7 gm/dL (2.2-3.7); Glomerular Filtration Rate 20; Glucose 134 mg/dL (70-105); Lactate Dehydrogenase 206 U/L (94-250); Magnesium 1.8 mg/dL (1.6-2.5); Phosphorous 2.4 mg/dL (2.7-4.5); Sodium 141 mmol/L (133-145); Triglycerides 76 mg/dl (<150); Uric Acid 6.3 mg/dL (2.5-8.0)
[2018-10-17 06:42] LABS: Basophils # (Auto) 0 K/mcL (0.0-0.3); Basophils % (Auto) 0.4 % (0.0-2.0); Eosinophils # (Auto) 0.1 K/mcL (0.0-0.7); Eosinophils % (Auto) 1.6 % (0.0-7.0); Granulocytes % (Auto) 56.7 % (38.0-78.0); Hematocrit 23.5 % (36.0-48.0); Hemoglobin 7.7 g/dL (12.0-15.0); Lymphocytes % (Auto) 31.5 % (15.5-49.0); Mean Cell Volume 113.6 fL (80.0-100.0); Mean Corpuscular HGB Conc 32.6 g/dL (31.0-36.0); Mean Platelet Volume 7.8 fL (7.4-10.4); Monocytes # (Auto) 0.3 K/mcL (0.1-0.9); Monocytes % (Auto) 9.8 % (1.0-12.0); Platelet Count 68 K/mcL (140-440); RBC 2.07 M/mcL (4.00-5.20); Red Cell Distribution Width 21.9 % (11.5-14.5); WBC 3.3 K/mcL (4.5-11.0)
[2018-10-17] MEDS ORDERED: CEFEPIME 1 GM VIAL IV SCH (09:00)
[2018-10-17 09:16] LABS: Free T3 1.9 pg/ml (2.0-4.4); Free T4 (Free Thyroxine) 1.27 ng/dl (0.7-1.7)
[2018-10-17] MEDS: ENOXAPARIN 100 MG/ML SYRINGE SQ SCH ×2 (09:18→09:26)
[2018-10-17] MEDS: ALLOPURINOL 100 MG TABLET PO SCH (09:20)
[2018-10-17] MEDS: buPROPion 150 MG TAB.XL.24H PO SCH (09:21)
[2018-10-17] MEDS: FOLIC ACID/VITAMIN B COMP W-C 1 TAB TABLET PO SCH (09:21)
[2018-10-17] MEDS: DOCUSATE SODIUM 100 MG CAPSULE PO SCH ×2 (09:21→21:04)
[2018-10-17] MEDS: INSULIN LISPRO 1 UNIT/0.01 ML UNIT SQ SCH ×4 (09:26→21:04)
--- NOTE | 2018-10-17 09:39 | Nephrology Progress Note ---
Subjective Patient information: Note initiated : 10/17/18 at 9:37 am Service Date, if different from initiated Date: [] Patient: Sissy Isaac 73 y/o F admitted on 10/15/18 for nausea, vomiting, weakness. Chief Complaint: Feels a lot better. Has been sitting out of bed. Objective - Vital Signs Vital signs: Vital Signs Temp Resp BP Pulse Ox 10/17/18 08:04 98.0 F 10/17/18 08:00 98.0 F 106/62 10/17/18 07:44 97.9 F 110/66 95 10/17/18 07:01 97.7 F 93/59 95 10/17/18 06:01 97.5 F 104/64 96 10/17/18 05:01 97.6 F 123/56 96 10/17/18 04:19 97.9 F 98 10/17/18 04:01 98.1 F 20 104/48 96 10/17/18 03:01 98.6 F 18 116/64 97 10/17/18 02:01 99.5 F H 18 104/46 96 10/17/18 01:01 100.1 F H 20 101/49 92 10/17/18 00:31 100.3 F H 10/17/18 00:21 100.5 F H 93/48 92 10/17/18 00:00 100.5 F H 20 91/44 91 10/16/18 23:46 100.6 F H 10/16/18 22:49 100.7 F H 106/46 94 10/16/18 20:01 100.7 F H 22 106/64 93 10/16/18 19:57 93 10/16/18 16:01 98.1 F 18 130/72 88 L 10/16/18 12:20 99.4 F H 17 98 10/16/18 11:57 99.5 F H 19 96/70 96 10/16/18 11:03 99.6 F H 23 H 49/25 93 10/16/18 10:19 99.4 F H 20 97 10/16/18 10:08 99.2 F H 16 112/59 96 10/16/18 10:07 99.1 F H 23 H 93 10/16/18 10:06 99.0 F 20 92 10/16/18 10:01 99.2 F H 23 H 10/16/18 09:41 99.4 F H 18 95 10/16/18 09:40 99.5 F H 21 94 Intake and Output 10/16/18 10/17/18 10/17/18 21:59 05:59 13:59 Intake Total 1726 Output Total 650 335 Balance 1076 -335 Intake: Oral 1726 Output: Urine Catheter Amount 650 335 Other: Meal Nourishment/Supplement Breakfast Percent of Meal Consumed 100% 25% Feeding Ability Assist with Tray Set Up Nourishment/Supplement name vanilla wafers and peanut butter Urine Appearance Clear Sediment Uretheral (Easley) Clear Urine Color Bright Yellow Bright Yellow Uretheral (Easley) Bright Yellow Stool Size Large Stool Color Brown Pale Stool Consistency Loose # Bowel Movements 1 Weight 199 lb 1 oz Intake & Output: Intake & Output 10/16/18 10/17/18 10/17/18 21:59 05:59 13:59 Intake Total 1726 Output Total 650 335 Balance 1076 -335 Weight 199 lb 1 oz Intake: Oral 1726 Output: Urine Catheter Amount 650 335 Other: Meal Nourishment/Supplement Breakfast Percent of Meal Consumed 100% 25% Feeding Ability Assist with Tray Set Up Nourishment/Supplement name vanilla wafers and peanut butter Urine Appearance Clear Sediment Uretheral (Easley) Clear Urine Color Bright Yellow Bright Yellow Uretheral (Easley) Bright Yellow Stool Size Large Stool Color Brown Pale Stool Consistency Loose # Bowel Movements 1 - General Appearance General appearance: well-developed, well-nourished EENT: ATNC Neck: no JVD Respiratory: no kyphosis Cardiology: no murmurs Gastrointestinal: normoactive bowel sounds - Lab 10/17/18 03:35 10/17/18 03:35 Most recent lab results Calcium 7.8 mg/dl (8.6-10.4) L 10/17/18 03:35 Phosphorus 2.4 mg/dL (2.7-4.5) L 10/17/18 03:35 Magnesium 1.8 mg/dL (1.6-2.5) 10/17/18 03:35 Assessment and Plan (1) Hyperkalemia Status: Acute Comment: SHERRELL, secondary to Lisinopril in addition to current medical condition. US is ok. Creatinine improving. Please hold the lisinopril at discharge.
--- NOTE | 2018-10-17 10:38 | Ultrasound Report ---
CLINICAL INFORMATION: Leg pain COMPARISON: None. FINDINGS: The entire deep venous system including the common femoral, superficial femoral, popliteal and paired trifurcation calf veins are easily compressible and show normal venous blood flow on color and spectral Doppler. No evidence of thrombus IMPRESSION: No evidence of deep vein thrombosis. 4.3 cm Whittington's cyst in the popliteal fossa Interpreted and Authenticated by: Severiano Rossi 10/17/18
[2018-10-17] MEDS ORDERED: VERAPAMIL 120 MG TAB.XL.24H PO SCH (11:01)
[2018-10-17] MEDS ORDERED: buPROPion 150 MG TAB.XL.24H PO SCH (11:02)
--- NOTE | 2018-10-17 11:08 | Internal Med Progress Note ---
Medical - PN: Subj Patient information: Note initiated : 10/17/18 at 11:03 am Service Date, if different from initiated Date: [] Patient: Sissy Isaac a 73 y/o F admitted on 10/15/18 for nausea, vomiting, weakness. Chief Complaint: [] Interval history: Ms. Isaac is a 73 year old F The ED not feeling well complaining of weakness and nausea. Patient states that she went to bed feeling fine on Monday night. However early Monday morning she woke up and had to get help to go the bathroom she is also nauseous. Throughout the day as she did have some vomiting earlier in the day which she describes bilious. But in the weakness improved a little bit and later that night she was able to keep down some shrimp. However the next morning she had a similar symptoms very weak and nauseous and had some vomiting denies any blood in her vomit or her stools. She denies any abdominal pain. Denies chest pain. Denies any recent sick contacts or traveling. She was found in the ED to have elevated creatinine above baseline as well as hyperkalemia with a potassium 6.5. EKG no spiked T waves does have a prolonged QRS, unknown baseline, troponin was unremarkable. She does complain of some foot swelling the past couple months. And some occasional shortness of breath. She takes metformin and Tradjenta for diabetes. Barium swallow was done in the ED which was unremarkable chest x-ray with some pulmonary edema. Denies any cardiac history. Is not on any potassium supplements, but is on lisinopril. 10/16 Feeling better today. Diuresed well last night however she drank quite a bit. Diarrhea after Kayexalate. Slept okay. No other events. 10/17 Patient seen exained HR elevated, renal function and creat improved labs stable, pt has pancytopenia, as well as low vit b12 levels. patient also notes she has had elevated heart rate for a long time, CT shwos she has no e/o infection, but likely cirrhosis, splenomegaly resume verapramil for now to see how her HR responds. SHe does not eat well, only peanut butter, sandwich, has some aversion to food. Refused GI evaluation at this time. Pertinent ROS: Denies headache, dizziness Denies chest pain, palpitations Denies cough or shortness of breath Denies abdominal pain, nausea or vomiting. - Constitutional Vitals: Vital Signs Temp Pulse Resp BP Pulse Ox 98.0 F 112 H 20 106/62 95 10/17/18 08:04 10/16/18 02:00 10/17/18 04:01 10/17/18 08:00 10/17/18 07:44 Period Temp Pulse Resp BP Sys/Helms Pulse Ox Last 24 Hr 97.5 F-100.7 F - 91-130/44-72 88-98 Intake and Output 10/16/18 10/17/18 10/17/18 21:59 05:59 13:59 Intake Total 1726 Output Total 650 335 Balance 1076 -335 Weight 199 lb 1 oz Intake & Output: Intake & Output 10/16/18 10/17/18 10/17/18 21:59 05:59 13:59 Intake Total 1726 Output Total 650 335 Balance 1076 -335 Weight 199 lb 1 oz Intake: Oral 1726 Output: Urine Catheter Amount 650 335 Other: Meal Nourishment/Supplement Breakfast Percent of Meal Consumed 100% 25% Feeding Ability Assist with Tray Set Up Nourishment/Supplement name vanilla wafers and peanut butter Urine Appearance Clear Sediment Uretheral ([place]) Clear Urine Color Bright Yellow Bright Yellow Uretheral ([place]) Bright Yellow Stool Size Large Stool Color Brown Pale Stool Consistency Loose # Bowel Movements 1 Exam: Constitutional; Afebrile, cooperative, alert, not in distress. Obese lady Respiratory system: Air Entry equal on both sides, No crackles or wheezing, no rhonchi. CVS- Rate tachycardic, rhythm regular, S1,S2 heard, no gallop, no rub. Abdomen- Soft nontender abdomen, no organomegaly, no tenderness, no guarding or rigidity, [employer]- AOOx3, moving all extremities, no gross focal deficit noted. Medical - PN: Obj Da - Labs CBC & Chem 7: 10/17/18 03:35 10/17/18 03:35 Labs: Abnormal Lab Results 10/17/18 10/17/18 10/17/18 03:35 03:35 03:35 WBC RBC Hgb Hct POC Hct MCV MCH RDW Plt Count Gran % Lymph % (Auto) Lymph # (Auto) Seg Neutrophils % Lymphocytes % RBC Morphology Hypochromasia Basophilic Stippling Anisocytosis Macrocytosis D-Dimer POC Potassium Potassium 3.0 L POC Chloride Carbon Dioxide POC Total CO2 Anion Gap POC BUN BUN 47 H Creatinine 2.3 H POC Creatinine Glucose 134 H POC Glucose Calcium 7.8 L POC WB Ioniz Calcium Phosphorus 2.4 L Total Bilirubin Direct Bilirubin GGT 188 H AST 47 H ALT Alkaline Phosphatase Lactate Dehydrogenase Total Protein 5.5 L Albumin 2.8 L Vitamin B12 TSH 0.05 L Free T3 pg/mL 1.9 L Urine Occult Blood Urine RBC Urine WBC Amorphous Crystals 10/17/18 10/16/18 10/16/18 03:35 23:28 23:28 WBC 3.3 L RBC 2.07 L Hgb 7.7 L Hct 23.5 L POC Hct MCV 113.6 H MCH 37.0 H RDW 21.9 H Plt Count 68 L Gran % Lymph % (Auto) Lymph # (Auto) 1.0 L Seg Neutrophils % Lymphocytes % RBC Morphology Hypochromasia Basophilic Stippling Anisocytosis Macrocytosis D-Dimer 5.12 H POC Potassium Potassium 3.1 L POC Chloride Carbon Dioxide POC Total CO2 Anion Gap POC BUN BUN 47 H Creatinine 2.3 H POC Creatinine Glucose 202 H POC Glucose Calcium 8.0 L POC WB Ioniz Calcium Phosphorus Total Bilirubin Direct Bilirubin GGT AST ALT Alkaline Phosphatase Lactate Dehydrogenase Total Protein Albumin Vitamin B12 TSH Free T3 pg/mL Urine Occult Blood Urine RBC Urine WBC Amorphous Crystals 10/16/18 10/16/18 10/16/18 23:28 08:15 03:21 WBC 3.5 L RBC 2.10 L Hgb 7.6 L Hct 23.7 L POC Hct MCV 112.9 H MCH 36.3 H RDW 22.1 H Plt Count 71 L Gran % Lymph % (Auto) Lymph # (Auto) 0.9 L Seg Neutrophils % 81 H Lymphocytes % 13 L RBC Morphology Abnorm A Hypochromasia 1+ A Basophilic Stippling Occ A Anisocytosis 2+ A Macrocytosis 3+ A D-Dimer POC Potassium Potassium POC Chloride Carbon Dioxide POC Total CO2 Anion Gap POC BUN BUN Creatinine POC Creatinine Glucose POC Glucose Calcium POC WB Ioniz Calcium Phosphorus Total Bilirubin Direct Bilirubin GGT AST ALT Alkaline Phosphatase Lactate Dehydrogenase Total Protein Albumin Vitamin B12 TSH Free T3 pg/mL Urine Occult Blood >=1.0 A Urine RBC 84 H Urine WBC 16 H Amorphous Crystals Few A 10/16/18 10/16/18 10/15/18 03:21 03:21 20:00 WBC 4.4 L RBC 2.05 L Hgb 7.6 L Hct 23.4 L POC Hct MCV 114.1 H MCH 37.0 H RDW 22.2 H Plt Count 69 L Gran % 82.4 H Lymph % (Auto) 12.1 L Lymph # (Auto) 0.5 L Seg Neutrophils % Lymphocytes % RBC Morphology Hypochromasia Basophilic Stippling Anisocytosis Macrocytosis D-Dimer POC Potassium Potassium 5.7 H POC Chloride Carbon Dioxide POC Total CO2 Anion Gap POC BUN BUN 49 H Creatinine 3.1 H POC Creatinine Glucose 149 H POC Glucose Calcium 8.4 L POC WB Ioniz Calcium Phosphorus Total Bilirubin 1.3 H Direct Bilirubin 0.5 H GGT 205 H AST 98 H ALT 43 H Alkaline Phosphatase 118 H Lactate Dehydrogenase 284 H Total Protein Albumin Vitamin B12 TSH Free T3 pg/mL Urine Occult Blood Urine RBC Urine WBC Amorphous Crystals 10/15/18 10/15/18 10/15/18 16:52 15:23 15:23 WBC RBC 2.31 L Hgb 8.5 L Hct 26.4 L POC Hct 27.0 L MCV 114.5 H MCH 36.8 H RDW 22.3 H Plt Count 113 L Gran % 83.8 H Lymph % (Auto) 9.9 L Lymph # (Auto) 0.6 L Seg Neutrophils % Lymphocytes % RBC Morphology Hypochromasia Basophilic Stippling Anisocytosis Macrocytosis D-Dimer POC Potassium 6.6 H* Potassium 6.5 H* POC Chloride 111 H Carbon Dioxide 12 L POC Total CO2 15 L Anion Gap 21.0 H POC BUN 43 H BUN 47 H Creatinine 3.3 H POC Creatinine 3.6 H Glucose 142 H POC Glucose 140 H Calcium POC WB Ioniz Calcium 1.09 L Phosphorus Total Bilirubin 1.8 H Direct Bilirubin GGT AST 58 H ALT Alkaline Phosphatase 140 H Lactate Dehydrogenase Total Protein Albumin Vitamin B12 TSH Free T3 pg/mL Urine Occult Blood Urine RBC Urine WBC Amorphous Crystals 10/15/18 10:30 WBC RBC Hgb Hct POC Hct MCV MCH RDW Plt Count Gran % Lymph % (Auto) Lymph # (Auto) Seg Neutrophils % Lymphocytes % RBC Morphology Hypochromasia Basophilic Stippling Anisocytosis Macrocytosis D-Dimer POC Potassium Potassium POC Chloride Carbon Dioxide POC Total CO2 Anion Gap POC BUN BUN Creatinine POC Creatinine Glucose POC Glucose Calcium POC WB Ioniz Calcium Phosphorus Total Bilirubin Direct Bilirubin GGT AST ALT Alkaline Phosphatase Lactate Dehydrogenase Total Protein Albumin Vitamin B12 150.0 L TSH Free T3 pg/mL Urine Occult Blood Urine RBC Urine WBC Amorphous Crystals Meds: Medications Acetaminophen (Tylenol) 650 mg PO Q6HP PRN PRN Reason: PAIN/FEVER > 101 Last Admin: 10/16/18 23:46 Dose: 650 mg Documented by: Acetaminophen/Codeine Phosphate (Tylenol #3) 1 tab PO QIDP PRN PRN Reason: Pain Last Admin: 10/16/18 20:34 Dose: 1 tab Documented by: Albuterol/Ipratropium (Duoneb) 3 ml NEB Q4HP PRN PRN Reason: Shortness Of Breath Allopurinol (Zyloprim) 50 mg PO DAILY [facility] Last Admin: 10/17/18 09:20 Dose: 50 mg Documented by: Bupropion HCl (Wellbutrin Xl) 150 mg PO DAILY [facility] Last Admin: 10/17/18 09:21 Dose: 150 mg Documented by: Bupropion HCl (Wellbutrin Xl) 150 mg PO DAILY [facility] Cefepime HCl (Maxipime) 1 gm IV Q24H [facility]; Protocol Last Admin: 10/17/18 09:25 Dose: 1 gm Documented by: Cyanocobalamin (Vitamin B12) 1,000 mcg IM Q7D [facility] Last Admin: 10/16/18 12:43 Dose: 1,000 mcg Documented by: Dextrose (Dextrose 50%) 0 ml IV UD PRN PRN Reason: Hypoglycemia Diagnostic Test (Pha) (Accu-Chek) 1 each FS [facility] Last Admin: 10/17/18 09:26 Dose: 1 each Documented by: Docusate Sodium (Colace) 100 mg PO BID [facility] Last Admin: 10/17/18 09:21 Dose: Not Given Documented by: Enoxaparin Sodium (Lovenox) 100 mg SQ DAILY [facility] Last Admin: 10/17/18 09:26 Dose: Not Given Documented by: Famotidine (Pepcid) [address] [facility] Last Admin: 10/16/18 20:20 Dose: 20 mg Documented by: Gabapentin (Neurontin) [address] [facility] Last Admin: 10/16/18 20:20 Dose: 100 mg Documented by: Glucose (Insta-Glucose) 15 gm PO PRN PRN PRN Reason: Hypoglycemia Insulin Human Lispro (Humalog) 0 unit SQ [facility]; Protocol Last Admin: 10/17/18 09:26 Dose: Not Given Documented by: Lactulose (Cephulac) 10 gm PO DAILYP PRN PRN Reason: Constipation Melatonin (Melatonin 3mg Tablet) 6 mg PO HS [facility] Last Admin: 10/16/18 20:20 Dose: 6 mg Documented by: Metronidazole (Flagyl) 500 mg PO Q8 [facility]; Protocol Last Admin: 10/17/18 05:27 Dose: 500 mg Documented by: Multivit/Ca Carb/B Cmplx/FA/Prenat (Diatx) 1 tab PO DAILY [facility] Last Admin: 10/17/18 09:21 Dose: 1 tab Documented by: Ondansetron HCl (Zofran) 4 mg IV Q4HP PRN PRN Reason: Nausea And Vomiting Polyethylene Glycol (Miralax) 17 gm PO DAILYP PRN PRN Reason: Constipation Prochlorperazine (Compazine) 10 mg IV Q6HP PRN PRN Reason: Nausea And Vomiting Promethazine HCl (Phenergan) 25 mg PO BIDP PRN PRN Reason: Nausea Senna (Senokot) 2 tab PO HSP PRN PRN Reason: Constipation Simvastatin (Zocor) 20 mg PO HS [facility] Last Admin: 10/16/18 20:20 Dose: 20 mg Documented by: Sodium Chloride (Saline Flush) 10 ml IV Q8 [facility] Last Admin: 10/17/18 05:28 Dose: 10 ml Documented by: Verapamil HCl (Calan Sr) 240 mg PO DAILY [facility] Medical - PN: A/P - Time Spent With Patient Total time spent is greater than 50% in coordination of care (as documented) at patient's floor/unit and/or counseling patient: - Narrative A/P Narrative: A: *Hyperkalemia: 2/ meds & SHERRELL -REsovled *SHERRELL on CKD IIIb: -renal u/s -3.1<3.3 < 2.5 today improving. 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 - it seems her HR [id number] when her verapamil was held -Inappropriate sinus tachycardia -elevated d dmier makes pe concerning, DVT scan is negative. -on Lovenox full anticoagulation for now. will monitor. unable to get CTA to rule out PE due to poor renal function. -got verapramil dose today, but given severe chf, will switch to beta blockes. - *DM w/neuropathy: has been on metformin/tradjenta (helf for now -ssi insulin Congestive heart failuire -Echo shows severe chf, moderate to severe MR< moderate Pulm HTN -start on metoprolol xl, *Obesity: *HTN/HLD: on verapamil and ACEI/ held, switch to beta blockers given chf severe. *Chronic low back pain: *GERD: on famotidine *Depression: \ *Gout: P: Appreciate nephrology help outpatient GI workup if needed will get VQ scan done as outpatient/ and d/c anticoagulatino if negative. vs transfer to another center. start on metoprolol diuretic management per nephrology d/c antibiotic cefpime and flagyl, rocephin for UTI, 3 to 5 days abx planned -pt/ot -SSI -ppx: heparin(monitor platelets, if <50k then stop)/home h2 Medical - PN: Qual - Stroke Symptom Onset Unknown: No - VTE Deep Vein Thrombosis/Pulmonary Embolism Present on Admission: No
[2018-10-17] MEDS: ACETAMINOPHEN 325 MG TABLET PO PRN (20:16)
[2018-10-17] MEDS: FAMOTIDINE 20 MG TABLET PO SCH (21:03)
[2018-10-17] MEDS: SIMVASTATIN 20 MG TABLET PO SCH (21:03)
[2018-10-17] MEDS: GABAPENTIN 100 MG CAPSULE PO SCH (21:03)
[2018-10-17] MEDS: MELATONIN 3 MG TABLET PO SCH (21:03)
[2018-10-17] MEDS: ACETAMINOPHEN W/CODEINE #3 1 TABLET PO PRN (21:05)
[2018-10-18 05:17] LABS: Basophils # (Auto) 0 K/mcL (0.0-0.3); Basophils % (Auto) 0.8 % (0.0-2.0); Eosinophils # (Auto) 0.1 K/mcL (0.0-0.7); Eosinophils % (Auto) 4.7 % (0.0-7.0); Granulocytes % (Auto) 49.7 % (38.0-78.0); Hematocrit 22.5 % (36.0-48.0); Hemoglobin 7.3 g/dL (12.0-15.0); Lymphocytes # (Auto) 0.9 K/mcL (1.5-4.8); Lymphocytes % (Auto) 34.5 % (15.5-49.0); Mean Cell Volume 113.4 fL (80.0-100.0); Mean Corpuscular HGB Conc 32.5 g/dL (31.0-36.0); Mean Platelet Volume 7.3 fL (7.4-10.4); Monocytes # (Auto) 0.3 K/mcL (0.1-0.9); Monocytes % (Auto) 10.3 % (1.0-12.0); Platelet Count 69 K/mcL (140-440); RBC 1.99 M/mcL (4.00-5.20); Red Cell Distribution Width 21.3 % (11.5-14.5); WBC 2.6 K/mcL (4.5-11.0)
[2018-10-18] MEDS: 0.9 % SODIUM CHLORIDE 10 ML SYRINGE IV SCH ×3 (05:21→21:59)
[2018-10-18 05:40] LABS: ALT/SGPT 24 U/l (0-40); AST/SGOT 36 U/l (0-37); Albumin 2.8 gm/dL (3.2-5.2); Albumin/Globulin Ratio 1.1 (1.0-2.3); Alkaline Phosphatase 113 U/L (39-117); Bilirubin,Direct 0.3 mg/dL (0.0-0.3); Bilirubin,Total 0.7 mg/dL (0.0-1.0); Blood Urea Nitrogen 41 mg/dl (8-23); Calcium 8.2 mg/dl (8.6-10.4); Carbon Dioxide 27 mmol/L (22-30); Chloride 101 mmol/L (96-108); Gamma Glutamyl Transpeptidase 181 U/L (5-36); Globulin 2.6 gm/dL (2.2-3.7); Glomerular Filtration Rate 27; Glucose 119 mg/dL (70-105); Lactate Dehydrogenase 199 U/L (94-250); Magnesium 1.9 mg/dL (1.6-2.5); Phosphorous 2.7 mg/dL (2.7-4.5); Potassium 3.2 mmol/L (3.3-5.1); Sodium 137 mmol/L (133-145); Triglycerides 60 mg/dl (<150); Uric Acid 6.1 mg/dL (2.5-8.0)
[2018-10-18] MEDS ORDERED: CYANOCOBALAMIN 1,000 MCG/ML VIAL IM ONE (07:19)
[2018-10-18] MEDS ORDERED: POTASSIUM CHLORIDE 20 MEQ PACKET PO ONE (07:20)
--- NOTE | 2018-10-18 08:09 | Internal Med Progress Note ---
Medical - PN: Subj Patient information: Note initiated : 10/18/18 at 8:06 am Service Date, if different from initiated Date: [] Patient: Sissy Isaac a 73 y/o F admitted on 10/15/18 for nausea, vomiting, weakness. Chief Complaint: [] Interval history: Ms. Isaac is a 73 year old F The ED not feeling well complaining of weakness and nausea. Patient states that she went to bed feeling fine on Monday night. However e kaushik Monday morning she woke up and had to get help to go the bathroom she is also nauseous. Throughout the day as she did have some vomiting earlier in the day which she describes bilious. But in the weakness improved a little bit and later that night she was able to keep down some shrimp. However the next morning she had a similar symptoms very weak and nauseous and had some vomiting denies any blood in her vomit or her stools. She denies any abdominal pain. Denies chest pain. Denies any recent sick contacts or traveling. She was found in the ED to have elevated creatinine above baseline as well as hyperkalemia with a potassium 6.5. EKG no spiked T waves does have a prolonged QRS, unknown baseline, troponin was unremarkable. She does complain of some foot swelling the past couple months. And some occasional shortness of breath. She takes metformin and Tradjenta for diabetes. Barium swallow was done in the ED which was unremarkable chest x-ray with some pulmonary edema. Denies any cardiac history. Is not on any potassium supplements, but is on lisinopril. 10/16 Feeling better today. Diuresed well last night however she drank quite a bit. Diarrhea after Kayexalate. Slept okay. No other events. 10/17 Patient seen exained HR elevated, renal function and creat improved labs stable, pt has pancytopenia, as well as low vit b12 levels. patient also notes she has had elevated heart rate for a long time, CT shwos she has no e/o infection, but likely cirrhosis, splenomegaly resume verapramil for now to see how her HR responds. SHe does not eat well, only peanut butter, sandwich, has some aversion to food. Refused GI evaluation at this time. 10/18 Patient seen examined, on lovenox for PE Creat improving, labs stable, still has persistent pancytopenia CT also shows findings suggestive of Cirrhosis, pt does not drink etoh, never been a heavy drinker, check hepatitis panel echo showed severe chf, therefore verapramil was switched to metoprolol Reviewed with her the need to transfer to higher center to get a VQ scan to r/o PE, the patient declined transfer, would rather take anticoagulation and do the needed study as outpatient. Understands the risk of anticoagulation. xfer to med surg status. Pertinent ROS: Denies headache, dizziness Denies chest pain, palpitations Denies cough or shortness of breath Denies abdominal pain, nausea or vomiting. just chr back pain - Constitutional Vitals: Vital Signs Temp Pulse Resp BP Pulse Ox 98.2 F 111 H 20 119/58 96 10/18/18 07:48 10/17/18 23:23 10/18/18 07:48 10/18/18 07:48 10/18/18 07:48 Period Temp Pulse Resp BP Sys/Helms Pulse Ox Last 24 Hr 97.3 F-101.1 F 111-114 16-20 97-125/47-73 83-98 Intake and Output 10/17/18 10/18/18 10/18/18 21:59 05:59 13:59 Intake Total 1880 360 Output Total 600 850 Balance 1280 -490 Weight 199 lb 11.2 oz Intake & Output: Intake & Output 10/17/18 10/18/18 10/18/18 21:59 05:59 13:59 Intake Total 1880 360 Output Total 600 850 Balance 1280 -490 Weight 199 lb 11.2 oz Intake: Oral 1880 360 Output: Void Amount 350 850 Urine/Stool Mix 250 Other: Meal Lunch Percent of Meal Consumed 100% Feeding Ability Independent Urine Color Dark Yellow Stool Size Large Stool Color Brown Stool Consistency Loose # Bowel Movements 2 Exam: Constitutional; Afebrile, cooperative, alert, not in distress. Eyes- No icterus, , No periorbital swelling Ears- Ext ear normal, hearing normal to conversation. Neck- Midline trachea, supple Respiratory system: Air Entry equal on both sides, right basilar crackles noted, no wheeze. CVS- Rate rhythm regular, S1,S2 heard, no gallop, no rub. Abdomen- Soft nontender abdomen, no organomegaly, no tenderness, no guarding or rigidity, [employer]ESS[employer]- AOOx3, moving all extremities, no gross focal deficit noted. Medical - PN: Obj Da - Labs CBC & Chem 7: 10/18/18 03:43 10/18/18 03:43 Labs: Abnormal Lab Results 10/18/18 10/18/18 10/17/18 03:43 03:43 03:35 WBC 2.6 L RBC 1.99 L Hgb 7.3 L Hct 22.5 L POC Hct MCV 113.4 H MCH 36.9 H RDW 21.3 H Plt Count 69 L MPV 7.3 L Gran % Lymph % (Auto) Gran # 1.3 L Lymph # (Auto) 0.9 L Seg Neutrophils % Lymphocytes % RBC Morphology Hypochromasia Basophilic Stippling Anisocytosis Macrocytosis D-Dimer POC Potassium Potassium 3.2 L POC Chloride Carbon Dioxide POC Total CO2 Anion Gap POC BUN BUN 41 H Creatinine 1.8 H POC Creatinine Glucose 119 H POC Glucose Calcium 8.2 L POC WB Ioniz Calcium Phosphorus Total Bilirubin Direct Bilirubin GGT 181 H AST ALT Alkaline Phosphatase Lactate Dehydrogenase Total Protein 5.4 L Albumin 2.8 L Vitamin B12 TSH Free T3 pg/mL 1.9 L Urine Occult Blood Urine RBC Urine WBC Amorphous Crystals 10/17/18 10/17/18 10/17/18 03:35 03:35 03:35 WBC 3.3 L RBC 2.07 L Hgb 7.7 L Hct 23.5 L POC Hct MCV 113.6 H MCH 37.0 H RDW 21.9 H Plt Count 68 L MPV Gran % Lymph % (Auto) Gran # Lymph # (Auto) 1.0 L Seg Neutrophils % Lymphocytes % RBC Morphology Hypochromasia Basophilic Stippling Anisocytosis Macrocytosis D-Dimer POC Potassium Potassium 3.0 L POC Chloride Carbon Dioxide POC Total CO2 Anion Gap POC BUN BUN 47 H Creatinine 2.3 H POC Creatinine Glucose 134 H POC Glucose Calcium 7.8 L POC WB Ioniz Calcium Phosphorus 2.4 L Total Bilirubin Direct Bilirubin GGT 188 H AST 47 H ALT Alkaline Phosphatase Lactate Dehydrogenase Total Protein 5.5 L Albumin 2.8 L Vitamin B12 TSH 0.05 L Free T3 pg/mL Urine Occult Blood Urine RBC Urine WBC Amorphous Crystals 10/16/18 10/16/18 10/16/18 23:28 23:28 23:28 WBC 3.5 L RBC 2.10 L Hgb 7.6 L Hct 23.7 L POC Hct MCV 112.9 H MCH 36.3 H RDW 22.1 H Plt Count 71 L MPV Gran % Lymph % (Auto) Gran # Lymph # (Auto) 0.9 L Seg Neutrophils % Lymphocytes % RBC Morphology Hypochromasia Basophilic Stippling Anisocytosis Macrocytosis D-Dimer 5.12 H POC Potassium Potassium 3.1 L POC Chloride Carbon Dioxide POC Total CO2 Anion Gap POC BUN BUN 47 H Creatinine 2.3 H POC Creatinine Glucose 202 H POC Glucose Calcium 8.0 L POC WB Ioniz Calcium Phosphorus Total Bilirubin Direct Bilirubin GGT AST ALT Alkaline Phosphatase Lactate Dehydrogenase Total Protein Albumin Vitamin B12 TSH Free T3 pg/mL Urine Occult Blood Urine RBC Urine WBC Amorphous Crystals 10/16/18 10/16/18 10/16/18 08:15 03:21 03:21 WBC RBC Hgb Hct POC Hct MCV MCH RDW Plt Count MPV Gran % Lymph % (Auto) Gran # Lymph # (Auto) Seg Neutrophils % 81 H Lymphocytes % 13 L RBC Morphology Abnorm A Hypochromasia 1+ A Basophilic Stippling Occ A Anisocytosis 2+ A Macrocytosis 3+ A D-Dimer POC Potassium Potassium POC Chloride Carbon Dioxide POC Total CO2 Anion Gap POC BUN BUN 49 H Creatinine 3.1 H POC Creatinine Glucose 149 H POC Glucose Calcium 8.4 L POC WB Ioniz Calcium Phosphorus Total Bilirubin 1.3 H Direct Bilirubin 0.5 H GGT 205 H AST 98 H ALT 43 H Alkaline Phosphatase 118 H Lactate Dehydrogenase 284 H Total Protein Albumin Vitamin B12 TSH Free T3 pg/mL Urine Occult Blood >=1.0 A Urine RBC 84 H Urine WBC 16 H Amorphous Crystals Few A 10/16/18 10/15/18 10/15/18 03:21 20:00 16:52 WBC 4.4 L RBC 2.05 L Hgb 7.6 L Hct 23.4 L POC Hct 27.0 L MCV 114.1 H MCH 37.0 H RDW 22.2 H Plt Count 69 L MPV Gran % 82.4 H Lymph % (Auto) 12.1 L Gran # Lymph # (Auto) 0.5 L Seg Neutrophils % Lymphocytes % RBC Morphology Hypochromasia Basophilic Stippling Anisocytosis Macrocytosis D-Dimer POC Potassium 6.6 H* Potassium 5.7 H POC Chloride 111 H Carbon Dioxide POC Total CO2 15 L Anion Gap POC BUN 43 H BUN Creatinine POC Creatinine 3.6 H Glucose POC Glucose 140 H Calcium POC WB Ioniz Calcium 1.09 L Phosphorus Total Bilirubin Direct Bilirubin GGT AST ALT Alkaline Phosphatase Lactate Dehydrogenase Total Protein Albumin Vitamin B12 TSH Free T3 pg/mL Urine Occult Blood Urine RBC Urine WBC Amorphous Crystals 10/15/18 10/15/18 10/15/18 15:23 15:23 10:30 WBC RBC 2.31 L Hgb 8.5 L Hct 26.4 L POC Hct MCV 114.5 H MCH 36.8 H RDW 22.3 H Plt Count 113 L MPV Gran % 83.8 H Lymph % (Auto) 9.9 L Gran # Lymph # (Auto) 0.6 L Seg Neutrophils % Lymphocytes % RBC Morphology Hypochromasia Basophilic Stippling Anisocytosis Macrocytosis D-Dimer POC Potassium Potassium 6.5 H* POC Chloride Carbon Dioxide 12 L POC Total CO2 Anion Gap 21.0 H POC BUN BUN 47 H Creatinine 3.3 H POC Creatinine Glucose 142 H POC Glucose Calcium POC WB Ioniz Calcium Phosphorus Total Bilirubin 1.8 H Direct Bilirubin GGT AST 58 H ALT Alkaline Phosphatase 140 H Lactate Dehydrogenase Total Protein Albumin Vitamin B12 150.0 L TSH Free T3 pg/mL Urine Occult Blood Urine RBC Urine WBC Amorphous Crystals Meds: Medications Acetaminophen (Tylenol) 650 mg PO Q6HP PRN PRN Reason: PAIN/FEVER > 101 Last Admin: 10/17/18 20:16 Dose: 650 mg Documented by: Acetaminophen/Codeine Phosphate (Tylenol #3) 1 tab PO QIDP PRN PRN Reason: Pain Last Admin: 10/17/18 21:05 Dose: 1 tab Documented by: Albuterol/Ipratropium (Duoneb) 3 ml NEB Q4HP PRN PRN Reason: Shortness Of Breath Allopurinol (Zyloprim) 50 mg PO DAILY [facility] Last Admin: 10/17/18 09:20 Dose: 50 mg Documented by: Bupropion HCl (Wellbutrin Xl) 150 mg PO DAILY [facility] Last Admin: 10/17/18 09:21 Dose: 150 mg Documented by: Ceftriaxone Sodium (Rocephin) 1 gm IV DAILY [facility]; Protocol Cyanocobalamin (Vitamin B12) 1,000 mcg IM Q7D [facility] Last Admin: 10/16/18 12:43 Dose: 1,000 mcg Documented by: Dextrose (Dextrose 50%) 0 ml IV UD PRN PRN Reason: Hypoglycemia Diagnostic Test (Pha) (Accu-Chek) 1 each FS [facility] Last Admin: 10/18/18 07:57 Dose: 1 each Documented by: Docusate Sodium (Colace) 100 mg PO BID [facility] Last Admin: 10/17/18 21:04 Dose: Not Given Documented by: Enoxaparin Sodium (Lovenox) 100 mg SQ DAILY [facility] Last Admin: 10/17/18 09:26 Dose: Not Given Documented by: Famotidine (Pepcid) [address] [facility] Last Admin: 10/17/18 21:03 Dose: 20 mg Documented by: Gabapentin (Neurontin) [address] [facility] Last Admin: 10/17/18 21:03 Dose: 100 mg Documented by: Glucose (Insta-Glucose) 15 gm PO PRN PRN PRN Reason: Hypoglycemia Insulin Human Lispro (Humalog) 0 unit SQ [facility]; Protocol Last Admin: 10/17/18 21:04 Dose: 6 unit Documented by: Lactulose (Cephulac) 10 gm PO DAILYP PRN PRN Reason: Constipation Melatonin (Melatonin 3mg Tablet) [address] [facility] Last Admin: 10/17/18 21:03 Dose: 6 mg Documented by: Metoprolol Succinate (Toprol Xl) 50 mg PO DAILY [facility] Multivit/Ca Carb/B Cmplx/FA/Prenat (Diatx) 1 tab PO DAILY [facility] Last Admin: 10/17/18 09:21 Dose: 1 tab Documented by: Ondansetron HCl (Zofran) 4 mg IV Q4HP PRN PRN Reason: Nausea And Vomiting Polyethylene Glycol (Miralax) 17 gm PO DAILYP PRN PRN Reason: Constipation Prochlorperazine (Compazine) 10 mg IV Q6HP PRN PRN Reason: Nausea And Vomiting Promethazine HCl (Phenergan) 25 mg PO BIDP PRN PRN Reason: Nausea Senna (Senokot) 2 tab PO HSP PRN PRN Reason: Constipation Simvastatin (Zocor) [address] [facility] Last Admin: 10/17/18 21:03 Dose: 20 mg Documented by: Sodium Chloride (Saline Flush) 10 ml IV Q8 [facility] Last Admin: 10/18/18 05:21 Dose: 10 ml Documented by: Medical - PN: A/P - Time Spent With Patient Total time spent is greater than 50% in coordination of care (as documented) at patient's floor/unit and/or counseling patient: - Narrative A/P Narrative: A: *Hyperkalemia: 2/2 meds & SHERRELL -Resovled *SHERRELL on CKD IIIb: -renal u/s - 1.8 creat today *Anemia, chronic [place], but macrocytic: no gross bleeding -Has received IV iron by her route deliverer *B12 Deficiency -on IM b12 weekly -one extra dose today. *Pancytopenia likely from b12 deficiency as well as cirrhosis/splenomegaly -started on folate and mv supplements *Metabolic acidosis: resolved *Pulm/peripheral edema: concern for cardiomyopathy - *Fever (Tm 100.7 last night): unknown souce, UTI -d/c cefepime and flagyl CT neg for any obvious source -IV rocephin for UTI cirrhosis -Outpatient follow up with PCP -send hepatitis panel -non alcoholic, etiology? related to chf? Tachycardia -Sinus tachycardia, notes has been a chronic issue for her. - it seems her HR [id number] when her verapamil was held -Inappropriate sinus tachycardia -elevated d dmier makes pe concerning, DVT scan is negative. -on Lovenox full anticoagulation for now. will monitor. unable to get CTA to rule out PE due to poor renal function. -on metoprolol for CHF -Will need to r/o PE, pt has declined transfer to higher center for same, understands risk of anticoagulation -will continue anticoagulation till PE can be ruled out, Given improving renal function, she may get a CTA done while here. *DM w/neuropathy: has been on metformin/tradjenta (helf for now -ssi insulin Congestive heart failuire -Echo shows severe chf, moderate to severe MR< moderate Pulm HTN -start on metoprolol xl, -will benefit from outpatient cardiology eval *Obesity: BMI 35 -[id number] fopllow up *HTN/HLD - on verapamil and ACEI/ held, switch to beta blockers given chf severe. *Chronic low back pain: *GERD: on famotidine *Depression: *Gout: UTI -on rocephin for same. s/p treatment -pt/ot -SSI -ppx: heparin(monitor platelets, if <50k then stop)/home h2 Medical - PN: Qual - Stroke Symptom Onset Unknown: No - VTE Deep Vein Thrombosis/Pulmonary Embolism Present on Admission: No
[2018-10-18] MEDS: ENOXAPARIN 100 MG/ML SYRINGE SQ SCH (08:12)
[2018-10-18] MEDS: DOCUSATE SODIUM 100 MG CAPSULE PO SCH ×4 (08:12→21:11)
[2018-10-18] MEDS: INSULIN LISPRO 1 UNIT/0.01 ML UNIT SQ SCH ×4 (08:12→21:58)
[2018-10-18] MEDS: ALLOPURINOL 100 MG TABLET PO SCH ×2 (08:13→10:00)
[2018-10-18] MEDS: FOLIC ACID/VITAMIN B COMP W-C 1 TAB TABLET PO SCH ×2 (08:13→09:59)
[2018-10-18] MEDS: buPROPion 150 MG TAB.XL.24H PO SCH ×2 (08:13→10:00)
[2018-10-18] MEDS ORDERED: LACTULOSE 20 GM/30 ML ORAL.SOL PO PRN (08:34)
[2018-10-18] MEDS ORDERED: SENNOSIDES 1 TABLET PO PRN (08:34)
[2018-10-18] MEDS ORDERED: ACETAMINOPHEN W/CODEINE #3 1 TABLET PO PRN (08:34)
[2018-10-18] MEDS ORDERED: DEXTROSE 31 GM ORAL.SUSP PO PRN (08:34)
[2018-10-18] MEDS ORDERED: PROCHLORPERAZINE 10 MG/2 ML VIAL IV PRN (08:34)
[2018-10-18] MEDS ORDERED: POLYETHYLENE GLYCOL 3350 17 GM PACKET PO PRN (08:34)
[2018-10-18] MEDS ORDERED: DEXTROSE 50% 50 ML VIAL IV PRN (08:34)
[2018-10-18] MEDS ORDERED: ONDANSETRON 4 MG/2 ML VIAL IV PRN (08:34)
[2018-10-18] MEDS ORDERED: PROMETHAZINE 25 MG TABLET PO PRN (08:34)
[2018-10-18] MEDS ORDERED: IPRATROPIUM/ALBUTEROL 3 ML AMPUL.NEB NEB PRN (08:34)
[2018-10-18] MEDS ORDERED: ACETAMINOPHEN 325 MG TABLET PO PRN (08:34)
[2018-10-18] MEDS ORDERED: ENOXAPARIN 100 MG/ML SYRINGE SQ SCH (09:00)
[2018-10-18] MEDS ORDERED: METOPROLOL SUCCINATE 50 MG TAB.XL.24H PO SCH (09:00)
[2018-10-18 09:10] LABS: Hepatitis B Surface Antibody NEGATIVE (NEGATIVE); Hepatitis B Surface Antigen NEGATIVE (NEGATIVE); Hepatitis C Virus Antibody NON REACTIVE (NEGATIVE)
--- NOTE | 2018-10-18 09:20 | Nephrology Progress Note ---
Subjective Patient information: Note initiated : 10/18/18 at 9:18 am Service Date, if different from initiated Date: [] Patient: Sissy Isaac 73 y/o F admitted on 10/15/18 for nausea, vomiting, weakness. Chief Complaint: Feels better. No specific complaints. Objective - Vital Signs Vital signs: Vital Signs Temp Pulse Pulse Resp BP BP Pulse Ox 10/18/18 08:00 94 10/18/18 07:48 98.2 F 20 119/58 96 10/18/18 03:55 97.3 F 18 113/61 94 10/18/18 00:09 18 112/64 91 10/17/18 23:23 99.6 F H 111 H 20 113/64 83 L 10/17/18 21:11 100.9 F H 10/17/18 21:01 100.9 F H 10/17/18 20:16 101.1 F H 10/17/18 20:10 101.1 F H 112 H 16 113/64 10/17/18 20:08 113/64 90 10/17/18 20:00 93 10/17/18 19:03 113/58 92 10/17/18 19:00 99.9 F H 114 H 20 113/58 92 10/17/18 16:08 90 10/17/18 16:00 98.7 F 117/47 89 L 10/17/18 15:58 98/73 91 10/17/18 14:14 97/57 87 L 10/17/18 12:07 97/57 92 10/17/18 12:04 99.0 F 18 97/57 94 Intake and Output 10/17/18 10/18/18 10/18/18 21:59 05:59 13:59 Intake Total 1880 360 240 Output Total 600 850 Balance 1280 -490 240 Intake: Oral 1880 360 240 Output: Void Amount 350 850 Urine/Stool Mix 250 Other: Meal Lunch Breakfast Percent of Meal Consumed 100% 100% Feeding Ability Independent Independent Urine Color Dark Yellow Stool Size Large Moderate Stool Color Brown Brown Stool Consistency Loose Soft Loose # Voids 1 # Bowel Movements 2 1 Weight 199 lb 11.2 oz Intake & Output: Intake & Output 10/17/18 10/18/18 10/18/18 21:59 05:59 13:59 Intake Total 1880 360 240 Output Total 600 850 Balance 1280 -490 240 Weight 199 lb 11.2 oz Intake: Oral 1880 360 240 Output: Void Amount 350 850 Urine/Stool Mix 250 Other: Meal Lunch Breakfast Percent of Meal Consumed 100% 100% Feeding Ability Independent Independent Urine Color Dark Yellow Stool Size Large Moderate Stool Color Brown Brown Stool Consistency Loose Soft Loose # Voids 1 # Bowel Movements 2 1 - General Appearance General appearance: well-developed, well-nourished EENT: ATNC Neck: no JVD Cardiology: no murmurs Gastrointestinal: hypoactive bowel sounds Neurologic: no focal deficit - Lab 10/18/18 03:43 10/18/18 03:43 Most recent lab results Calcium 8.2 mg/dl (8.6-10.4) L 10/18/18 03:43 Phosphorus 2.7 mg/dL (2.7-4.5) 10/18/18 03:43 Magnesium 1.9 mg/dL (1.6-2.5) 10/18/18 03:43 Assessment and Plan (1) Hyperkalemia Status: Acute Comment: SHERRELL, secondary to Lisinopril in addition to current medical condition. US is ok. Creatinine improving. Please hold the lisinopril at discharge. I will sign off for now. Thanks.
[2018-10-18] MEDS: METOPROLOL SUCCINATE 50 MG TAB.XL.24H PO SCH (10:00)
[2018-10-18] MEDS ORDERED: cefTRIAXone 1 GM VIAL IV SCH (11:30)
[2018-10-18] MEDS: SIMVASTATIN 20 MG TABLET PO SCH (21:57)
[2018-10-18] MEDS: FAMOTIDINE 20 MG TABLET PO SCH (21:57)
[2018-10-18] MEDS: GABAPENTIN 100 MG CAPSULE PO SCH (21:57)
[2018-10-18] MEDS: MELATONIN 3 MG TABLET PO SCH (21:58)
[2018-10-19] MEDS: 0.9 % SODIUM CHLORIDE 10 ML SYRINGE IV SCH ×3 (05:56→22:16)
[2018-10-19 06:31] LABS: Basophils # (Auto) 0 K/mcL (0.0-0.3); Basophils % (Auto) 0.7 % (0.0-2.0); Eosinophils # (Auto) 0.1 K/mcL (0.0-0.7); Eosinophils % (Auto) 5.4 % (0.0-7.0); Granulocytes % (Auto) 41.3 % (38.0-78.0); Hematocrit 23.8 % (36.0-48.0); Hemoglobin 7.8 g/dL (12.0-15.0); Lymphocytes # (Auto) 0.9 K/mcL (1.5-4.8); Lymphocytes % (Auto) 39.9 % (15.5-49.0); Mean Cell Volume 113.9 fL (80.0-100.0); Mean Corpuscular HGB Conc 32.6 g/dL (31.0-36.0); Mean Platelet Volume 7.6 fL (7.4-10.4); Monocytes # (Auto) 0.3 K/mcL (0.1-0.9); Monocytes % (Auto) 12.7 % (1.0-12.0); Platelet Count 69 K/mcL (140-440); RBC 2.09 M/mcL (4.00-5.20); Red Cell Distribution Width 21.8 % (11.5-14.5); WBC 2.1 K/mcL (4.5-11.0)
[2018-10-19 06:48] LABS: ALT/SGPT 24 U/l (0-40); AST/SGOT 40 U/l (0-37); Albumin 2.8 gm/dL (3.2-5.2); Alkaline Phosphatase 135 U/L (39-117); Bilirubin,Direct 0.3 mg/dL (0.0-0.3); Bilirubin,Total 0.6 mg/dL (0.0-1.0); Blood Urea Nitrogen 32 mg/dl (8-23); Calcium 8.7 mg/dl (8.6-10.4); Carbon Dioxide 27 mmol/L (22-30); Chloride 102 mmol/L (96-108); Gamma Glutamyl Transpeptidase 197 U/L (5-36); Globulin 2.8 gm/dL (2.2-3.7); Glomerular Filtration Rate 41; Glucose 143 mg/dL (70-105); Lactate Dehydrogenase 220 U/L (94-250); Phosphorous 2.5 mg/dL (2.7-4.5); Potassium 3.9 mmol/L (3.3-5.1); Sodium 137 mmol/L (133-145); Triglycerides 70 mg/dl (<150); Uric Acid 6.1 mg/dL (2.5-8.0)
[2018-10-19] MEDS: INSULIN LISPRO 1 UNIT/0.01 ML UNIT SQ SCH ×4 (07:47→22:09)
--- NOTE | 2018-10-19 09:17 | Nephrology Progress Note ---
Subjective Patient information: Note initiated : 10/19/18 at 9:15 am Service Date, if different from initiated Date: [] Patient: Sissy Isaac 73 y/o F admitted on 10/15/18 for nausea, vomiting, weakness. Chief Complaint: Feeling better and no new complaints. Objective - Vital Signs Vital signs: Vital Signs Temp Pulse Resp BP BP BP Pulse Ox 10/19/18 07:59 18 94 10/19/18 06:52 98.7 F 18 128/60 94 10/19/18 04:02 97.6 F 82 18 121/61 94 10/18/18 23:30 97.8 F 89 17 117/56 93 10/18/18 19:32 97.9 F 91 H 16 121/64 94 10/18/18 13:00 98.9 F 93 H 16 115/56 97 10/18/18 11:28 99.7 F H 18 133/70 96 Intake and Output 10/18/18 10/19/18 10/19/18 21:59 05:59 13:59 Intake Total 240 480 Output Total 300 Balance 240 180 Intake: Oral 240 480 Output: Void Amount 300 Other: Meal Dinner Percent of Meal Consumed 100% Feeding Ability Independent Urine Color Pale Urine Odor Normal Stool Size Moderate Stool Color Brown Stool Consistency Formed # Voids 1 1 Weight 196 lb Intake & Output: Intake & Output 10/18/18 10/19/18 10/19/18 21:59 05:59 13:59 Intake Total 240 480 Output Total 300 Balance 240 180 Weight 196 lb Intake: Oral 240 480 Output: Void Amount 300 Other: Meal Dinner Percent of Meal Consumed 100% Feeding Ability Independent Urine Color Pale Urine Odor Normal Stool Size Moderate Stool Color Brown Stool Consistency Formed # Voids 1 1 - General Appearance General appearance: well-developed, well-nourished EENT: ATNC Neck: no JVD Respiratory: kyphosis Cardiology: no murmurs Gastrointestinal: hypoactive bowel sounds Integumentary: no rash Neurologic: no focal deficit - Lab 10/19/18 04:42 10/19/18 04:42 Most recent lab results Calcium 8.7 mg/dl (8.6-10.4) 10/19/18 04:42 Phosphorus 2.5 mg/dL (2.7-4.5) L 10/19/18 04:42 Magnesium 2.0 mg/dL (1.6-2.5) 10/19/18 04:42 Assessment and Plan (1) Hyperkalemia Status: Acute Comment: SHERRELL, secondary to Lisinopril in addition to current medical condition. US is ok. Creatinine improving. Can have CTA. Please hold the lisinopril at discharge. I will sign off for now. Thanks.
[2018-10-19] MEDS: FONDAPARINUX SODIUM 2.5 MG/0.5 ML SYRINGE SQ SCH (09:44)
[2018-10-19] MEDS: buPROPion 150 MG TAB.XL.24H PO SCH (09:45)
[2018-10-19] MEDS: ALLOPURINOL 100 MG TABLET PO SCH (09:45)
[2018-10-19] MEDS: METOPROLOL SUCCINATE 50 MG TAB.XL.24H PO SCH (09:45)
[2018-10-19] MEDS: DOCUSATE SODIUM 100 MG CAPSULE PO SCH ×2 (09:46→22:10)
[2018-10-19] MEDS: FOLIC ACID/VITAMIN B COMP W-C 1 TAB TABLET PO SCH (09:46)
[2018-10-19] MEDS ORDERED: IOPAMIDOL 100 ML BOTTLE IV ONE (10:56)
--- NOTE | 2018-10-19 11:09 | Cat Scan Report ---
CLINICAL INFORMATION: Chest pain and shortness of breath COMPARISON: None. TECHNIQUE: 80 cc of Isovue-300 were injected intravenously. Using SmartPrep to maximize pulmonary artery opacification, 2.5 mm helical slices were obtained from the lung apices through the lung bases. Following reconstruction, 2.5 mm sagittal, coronal, and axial reformations were processed. The exam was reviewed at mediastinal, lung, and bone windows. The exam was performed using radiation dose optimization techniques including, but not limited to, automated exposure control, adjustment of the mA and/or kV according to patient size and use of iterative reconstruction technique. FINDINGS: Pulmonary parenchymal windows show mild atelectasis and minimal residual interstitial edema in both peripheral lower lobes. No bianca infiltrates. Small bilateral pleural effusions are noted Mediastinal windows show pulmonary arteries are well-opacified and normal in contour and caliber without evidence of embolus. The thoracic aorta is also normal in contour and caliber. The heart is mildly enlarged with calcification seen in the mitral annulus and also aortic valve. Scattered calcific plaque also present in the coronary arteries. The esophagus is grossly normal. There is no adenopathy in the mediastinal hilar or axillary region. There is a very large multinodular adenoma by thyroid goiter spanning 8 x 5 cm extending into the left superior mediastinum displacing the trachea rightward. Bones soft tissues the chest wall are normal. Images through the superior abdomen show probable cirrhotic changes and varices in the perisplenic region - please see recent abdomen CT report 10/16/2018 IMPRESSION: 1. No evidence of pulmonary embolus - pulmonary arteries are normal 2. Small bilateral pleural effusions and minimal residual edema in the peripheral lower lobes. This likely represents recovering CHF 3. Massive thyroid goiter - multinodular adenomata extending into the the left superior mediastinum displacing the trachea rightward. Interpreted and Authenticated by: Severiano Rossi 10/19/18
--- NOTE | 2018-10-19 12:13 | Internal Med Progress Note ---
Medical - PN: Subj Patient information: Note initiated : 10/19/18 at 12:10 pm Service Date, if different from initiated Date: [] Patient: Sissy Isaac a 73 y/o F admitted on 10/15/18 for nausea, vomiting, weakness. Chief Complaint: [] Interval history: Ms. Isaac is a 73 year old F The ED not feeling well complaining of weakness and nausea. Patient states that she went to bed feeling fine on Monday night. However early Monday morning she woke up and had to get help to go the bathroom she is also nauseous. Throughout the day as she did have some vomiting earlier in the day which she describes bilious. But in the weakness improved a little bit and later that night she was able to keep down some shrimp. However the next morning she had a similar symptoms very weak and nauseous and had some vomiting denies any blood in her vomit or her stools. She denies any abdominal pain. Denies chest pain. Denies any recent sick contacts or traveling. She was found in the ED to have elevated creatinine above baseline as well as hyperkalemia with a potassium 6.5. EKG no spiked T waves does have a prolonged QRS, unknown baseline, troponin was unremarkable. She does complain of some foot swelling the past couple months. And some occasional shortness of breath. She takes metformin and Tradjenta for diabetes. Barium swallow was done in the ED which was unremarkable chest x-ray with some pulmonary edema. Denies any cardiac history. Is not on any potassium supplements, but is on lisinopril. 10/16 Feeling better today. Diuresed well last night however she drank quite a bit. Diarrhea after Kayexalate. Slept okay. No other events. 10/17 Patient seen exained HR elevated, renal function and creat improved labs stable, pt has pancytopenia, as well as low vit b12 levels. patient also notes she has had elevated heart rate for a long time, CT shwos she has no e/o infection, but likely cirrhosis, splenomegaly resume verapramil for now to see how her HR responds. SHe does not eat well, only peanut butter, sandwich, has some aversion to food. Refused GI evaluation at this time. 10/18 Patient seen examined, on lovenox for PE Creat improving, labs stable, still has persistent pancytopenia CT also shows findings suggestive of Cirrhosis, pt does not drink etoh, never been a heavy drinker, check hepatitis panel echo showed severe chf, therefore verapramil was switched to metoprolol Reviewed with her the need to transfer to higher center to get a VQ scan to r/o PE, the patient declined transfer, would rather take anticoagulation and do the needed study as outpatient. Understands the risk of anticoagulation. xfer to med surg status. 10/19-no evidence of PE on CT anterior chest however large thyroid goiter. Discussed with surgery. No immediate intervention indicated at this time per surgery. - Constitutional Vitals: Vital Signs Temp Pulse Resp BP Pulse Ox 98.2 F 82 16 115/57 95 10/19/18 11:50 10/19/18 04:02 10/19/18 11:50 10/19/18 11:50 10/19/18 11:50 Period Temp Pulse Resp BP Sys/Helms Pulse Ox Last 24 Hr 97.6 F-98.9 F 82-93 16-18 115-128/56-64 93-97 Intake and Output 10/18/18 10/19/18 10/19/18 21:59 05:59 13:59 Intake Total 240 480 Output Total 300 Balance 240 180 Weight 196 lb Intake & Output: Intake & Output 10/18/18 10/19/18 10/19/18 21:59 05:59 13:59 Intake Total 240 480 Output Total 300 Balance 240 180 Weight 196 lb Intake: Oral 240 480 Output: Void Amount 300 Other: Meal Dinner Percent of Meal Consumed 100% Feeding Ability Independent Urine Color Pale Urine Odor Normal Stool Size Moderate Small Stool Color Brown Stool Consistency Formed Loose # Voids 1 1 # Bowel Movements 1 General appearance: no acute distress Exam: Alert oriented nonlabored breathing No anxiety Nondistended abdomen Medical - PN: Obj Da - Labs CBC & Chem 7: 10/19/18 04:42 10/19/18 04:42 Labs: Abnormal Lab Results 10/19/18 10/19/18 10/18/18 04:42 04:42 03:43 WBC 2.1 L RBC 2.09 L Hgb 7.8 L Hct 23.8 L MCV 113.9 H MCH 37.2 H RDW 21.8 H Plt Count 69 L MPV [place] % (Auto) 12.7 H Gran # 0.9 L* Lymph # (Auto) 0.9 L D-Dimer Potassium 3.2 L BUN 32 H 41 H Creatinine 1.3 H 1.8 H Glucose 143 H 119 H Calcium 8.2 L Phosphorus 2.5 L GGT 197 H 181 H AST 40 H Alkaline Phosphatase 135 H Total Protein 5.6 L 5.4 L Albumin 2.8 L 2.8 L TSH Free T3 pg/mL 10/18/18 10/17/18 10/17/18 03:43 03:35 03:35 WBC 2.6 L RBC 1.99 L Hgb 7.3 L Hct 22.5 L MCV 113.4 H MCH 36.9 H RDW 21.3 H Plt Count 69 L MPV 7.3 L [place] % (Auto) Gran # 1.3 L Lymph # (Auto) 0.9 L D-Dimer Potassium BUN Creatinine Glucose Calcium Phosphorus GGT AST Alkaline Phosphatase Total Protein Albumin TSH 0.05 L Free T3 pg/mL 1.9 L 10/17/18 10/17/18 10/16/18 03:35 03:35 23:28 WBC 3.3 L RBC 2.07 L Hgb 7.7 L Hct 23.5 L MCV 113.6 H MCH 37.0 H RDW 21.9 H Plt Count 68 L MPV [place] % (Auto) Gran # Lymph # (Auto) 1.0 L D-Dimer 5.12 H Potassium 3.0 L BUN 47 H Creatinine 2.3 H Glucose 134 H Calcium 7.8 L Phosphorus 2.4 L GGT 188 H AST 47 H Alkaline Phosphatase Total Protein 5.5 L Albumin 2.8 L TSH Free T3 pg/mL 10/16/18 10/16/18 23:28 23:28 WBC 3.5 L RBC 2.10 L Hgb 7.6 L Hct 23.7 L MCV 112.9 H MCH 36.3 H RDW 22.1 H Plt Count 71 L MPV [place] % (Auto) Gran # Lymph # (Auto) 0.9 L D-Dimer Potassium 3.1 L BUN 47 H Creatinine 2.3 H Glucose 202 H Calcium 8.0 L Phosphorus GGT AST Alkaline Phosphatase Total Protein Albumin TSH Free T3 pg/mL Meds: Medications Acetaminophen (Tylenol) 650 mg PO Q6HP PRN PRN Reason: PAIN/FEVER > 101 Acetaminophen/Codeine Phosphate (Tylenol #3) 1 tab PO QIDP PRN PRN Reason: Pain Albuterol/Ipratropium (Duoneb) 3 ml NEB Q4HP PRN PRN Reason: Shortness Of Breath Allopurinol (Zyloprim) 50 mg PO DAILY [facility] Last Admin: 10/19/18 09:45 Dose: 50 mg Documented by: Bupropion HCl (Wellbutrin Xl) 150 mg PO DAILY [facility] Last Admin: 10/19/18 09:45 Dose: 150 mg Documented by: Cyanocobalamin (Vitamin B12) 1,000 mcg IM Q7D [facility] Dextrose (Dextrose 50%) 0 ml IV UD PRN PRN Reason: Hypoglycemia Diagnostic Test (Pha) (Accu-Chek) 1 each FS [facility] Last Admin: 10/19/18 11:44 Dose: 1 each Documented by: Docusate Sodium (Colace) 100 mg PO BID [facility] Last Admin: 10/19/18 09:46 Dose: Not Given Documented by: Famotidine (Pepcid) 20 mg PO [facility] Last Admin: 10/18/18 21:57 Dose: 20 mg Documented by: Fondaparinux (Arixtra) 2.5 mg SQ DAILY [facility] Last Admin: 10/19/18 09:44 Dose: 2.5 mg Documented by: Gabapentin (Neurontin) 100 mg PO [facility] Last Admin: 10/18/18 21:57 Dose: 100 mg Documented by: Glucose (Insta-Glucose) 15 gm PO PRN PRN PRN Reason: Hypoglycemia Insulin Human Lispro (Humalog) 0 unit SQ [facility]; Protocol Last Admin: 10/19/18 11:45 Dose: 6 units Documented by: Lactulose (Cephulac) 10 gm PO DAILYP PRN PRN Reason: Constipation Melatonin (Melatonin 3mg Tablet) 6 mg PO [facility] Last Admin: 10/18/18 21:58 Dose: 6 mg Documented by: Metoprolol Succinate (Toprol Xl) 50 mg PO DAILY [facility] Last Admin: 10/19/18 09:45 Dose: 50 mg Documented by: Multivit/Ca Carb/B Cmplx/FA/Prenat (Diatx) 1 tab PO DAILY [facility] Last Admin: 10/19/18 09:46 Dose: 1 tab Documented by: Ondansetron HCl (Zofran) 4 mg IV Q4HP PRN PRN Reason: Nausea And Vomiting Polyethylene Glycol (Miralax) 17 gm PO DAILYP PRN PRN Reason: Constipation Prochlorperazine (Compazine) 10 mg IV Q6HP PRN PRN Reason: Nausea And Vomiting Promethazine HCl (Phenergan) 25 mg PO BIDP PRN PRN Reason: Nausea Senna (Senokot) 2 tab PO HSP PRN PRN Reason: Constipation Simvastatin (Zocor) 20 mg PO HS [facility] Last Admin: 10/18/18 21:57 Dose: 20 mg Documented by: Sodium Chloride (Saline Flush) 10 ml IV Q8 [facility] Last Admin: 10/19/18 05:56 Dose: 10 ml Documented by: Medical - PN: A/P - Time Spent With Patient Total time spent is greater than 50% in coordination of care (as documented) at patient's floor/unit and/or counseling patient: 25 - 35 minutes - Narrative A/P Narrative: * Deconditioning-continue PT OT * UTI-IV rocephin for UTI * SHERRELL on CKD IIIb: Cr 1.3 * Large goiter on CT- Per surgery no interventions indicated at this time * Pancytopenia/Anemia, chronic [place], but macrocytic-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 Possibly congestive hepatopathy. Hepatitis panel negative * SInus Tachycardia- chronic issue for her. CTPE negative, dc full dose anticoag * Hyperkalemia: Resolved * DM w/neuropathy: metformin/tradjenta on hold -ssi insulin * Congestive heart failuire -Echo shows severe chf, moderate to severe MR< moderate Pulm HTN , continue metoprolol xl, -will benefit from outpatient cardiology eval * Obesity: BMI 35-outpatient follow up * HTN/HLD- on verapamil and ACEI/ held, switch to beta blockers given chf severe. 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
[2018-10-19] MEDS: MELATONIN 3 MG TABLET PO SCH (22:09)
[2018-10-19] MEDS: SIMVASTATIN 20 MG TABLET PO SCH (22:10)
[2018-10-19] MEDS: FAMOTIDINE 20 MG TABLET PO SCH (22:10)
[2018-10-19] MEDS: GABAPENTIN 100 MG CAPSULE PO SCH (22:10)
[2018-10-20] MEDS: 0.9 % SODIUM CHLORIDE 10 ML SYRINGE IV SCH (05:19)
[2018-10-20 05:59] LABS: Basophils # (Auto) 0 K/mcL (0.0-0.3); Basophils % (Auto) 0.7 % (0.0-2.0); Eosinophils # (Auto) 0.1 K/mcL (0.0-0.7); Eosinophils % (Auto) 5.5 % (0.0-7.0); Granulocytes % (Auto) 35.3 % (38.0-78.0); Hematocrit 25.1 % (36.0-48.0); Hemoglobin 8.2 g/dL (12.0-15.0); Lymphocytes # (Auto) 0.9 K/mcL (1.5-4.8); Lymphocytes % (Auto) 42.7 % (15.5-49.0); Mean Cell Volume 113.5 fL (80.0-100.0); Mean Corpuscular HGB Conc 32.7 g/dL (31.0-36.0); Mean Platelet Volume 7.6 fL (7.4-10.4); Monocytes # (Auto) 0.3 K/mcL (0.1-0.9); Monocytes % (Auto) 15.8 % (1.0-12.0); Platelet Count 75 K/mcL (140-440); RBC 2.21 M/mcL (4.00-5.20); Red Cell Distribution Width 21.6 % (11.5-14.5); WBC 2.2 K/mcL (4.5-11.0)
[2018-10-20 06:11] LABS: ALT/SGPT 25 U/l (0-40); AST/SGOT 46 U/l (0-37); Albumin 2.7 gm/dL (3.2-5.2); Alkaline Phosphatase 156 U/L (39-117); Bilirubin,Direct 0.3 mg/dL (0.0-0.3); Bilirubin,Total 0.6 mg/dL (0.0-1.0); Blood Urea Nitrogen 25 mg/dl (8-23); Calcium 8.8 mg/dl (8.6-10.4); Carbon Dioxide 27 mmol/L (22-30); Chloride 104 mmol/L (96-108); Gamma Glutamyl Transpeptidase 216 U/L (5-36); Globulin 2.8 gm/dL (2.2-3.7); Glomerular Filtration Rate 45; Glucose 142 mg/dL (70-105); Lactate Dehydrogenase 216 U/L (94-250); Magnesium 1.9 mg/dL (1.6-2.5); Phosphorous 2.9 mg/dL (2.7-4.5); Potassium 3.7 mmol/L (3.3-5.1); Sodium 140 mmol/L (133-145); Triglycerides 71 mg/dl (<150); Uric Acid 6.4 mg/dL (2.5-8.0)
[2018-10-20] MEDS: FONDAPARINUX SODIUM 2.5 MG/0.5 ML SYRINGE SQ SCH (08:20)
[2018-10-20] MEDS: INSULIN LISPRO 1 UNIT/0.01 ML UNIT SQ SCH ×2 (08:20→12:04)
[2018-10-20] MEDS: DOCUSATE SODIUM 100 MG CAPSULE PO SCH (08:21)
[2018-10-20] MEDS: ALLOPURINOL 100 MG TABLET PO SCH (08:22)
[2018-10-20] MEDS: buPROPion 150 MG TAB.XL.24H PO SCH (08:22)
[2018-10-20] MEDS: METOPROLOL SUCCINATE 50 MG TAB.XL.24H PO SCH (08:23)
[2018-10-20] MEDS: FOLIC ACID/VITAMIN B COMP W-C 1 TAB TABLET PO SCH (08:23)
--- NOTE | 2018-10-20 11:18 | Discharge Summary ---
Medical - DS: Prov Patient information: Note initiated : 10/20/18 at 11:14 am Service Date, if different from initiated Date: [] Patient: Sissy Isaac 73 y/o F admitted on 10/15/18 for nausea, vomiting, weakness. Chief Complaint: [] Date of admission: 10/15/18 19:39 Discharge date: 10/20/18 Primary care physician: Patito Davila Consults: 10/15/18 Consult to Physician [CONS] Stat Comment: Consulting Provider: Angel Sharp Reason For Exam: Physician to Consult 10/15/18 19:56 Consult to Physician [CONS] Routine Comment: Consulting Provider: Red Barrow Reason For Exam: Physician to Consult Medical - DS: Meds - Discharge Medications Prescriptions: Metoprolol Succinate [Toprol Xl] 50 mg PO DAILY #30 tab.xl.24h Active and Home Medications: Home Medications Acetaminophen W/Codeine #3 [Tylenol #3] 1 tab PO QIDP PRN 01/14/16 [History Confirmed 10/15/18 Last Taken 10/13/18 21:00] Allopurinol [Zylopriim] 300 mg PO DAILY 01/14/16 [History Confirmed 10/15/18 Last Taken 10/13/18 08:00] Cholecalciferol (Vitamin D3) [Vitamin D3] 4,000 unit PO DAILY 01/14/16 [History Confirmed 10/15/18 Last Taken 10/13/18 08:00] Gabapentin [Neurontin] 100 mg PO HS 01/14/16 [History Confirmed 10/15/18 Last Taken 10/13/18 21:00] Melatonin [Melatin] 6 mg PO HS 01/14/16 [History Confirmed 10/15/18 Last Taken 10/13/18 21:00] Promethazine HCl 25 - 50 mg PO BIDP PRN 01/14/16 [History Confirmed 10/15/18 Last Taken 10/13/18 19:00] Ranitidine HCl [Heartburn Relief] 150 mg PO HS 01/14/16 [History Confirmed 10/15/18 Last Taken 10/13/18 08:00] Simvastatin [Zocor] 20 mg PO HS 01/14/16 [History Confirmed 10/15/18 Last Taken 10/13/18 21:00] Tradjenta 5 mg PO DAILY 01/14/16 [History Confirmed 10/15/18 Last Taken 10/13/18 08:00] metFORMIN HCL [Fortamet] 1 tab PO BID 01/14/16 [History Confirmed 10/15/18 Last Taken 10/13/18 21:00] buPROPion [Wellbutrin Xl] 150 mg PO DAILY 10/16/18 [History Confirmed 10/16/18 Last Taken Unknown] Metoprolol Succinate [Toprol Xl] 50 mg PO DAILY #30 tab.xl.24h 10/20/18 [Rx Last Taken Unknown] Medical - DS: Hosp Hospital course: Discharge diagnosis * Acute decompensated heart failure systolic with EF 25%. moderate to severe MR< moderate Pulm HTN , on metoprolol XL. Recommend OK inhibitor/cardiology follow-up and outpatient, * Deconditioning-clinically improved with ongoing PT OT * Uncomplicated UTI -resolved. Status post antibiotics. * SHERRELL on CKD IIIb: Cr 1.3. Follow-up nephrology outpatient * Large goiter on CT- Per surgery no interventions indicated at this time. 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 Possibly congestive hepatopathy. Hepatitis panel negative * SInus Tachycardia- chronic issue for her. CTPE negative * Hyperkalemia: Resolved * DM w/neuropathy: metformin/tradjenta on hold -ssi insulin * Obesity: BMI 35-outpatient follow up * HTN/HLD- switched to beta blockers given chf severe. * Chronic low back pain: * GERD:on famotidine * Depression stable * Gout-no acute flare Brief hospital course Mr. Isaac is a 73 year old F The ED not feeling well complaining of weakness and nausea. Patient states that she went to bed feeling fine on Monday night. However early Monday morning she woke up and had to get help to go the bathroom she is also nauseous. Throughout the day as she did have some vomiting earlier in the day which she describes bilious. But in the weakness improved a little bit and later that night she was able to keep down some shrimp. However the next morning she had a similar symptoms very weak and nauseous and had some vomiting denies any blood in her vomit or her stools. She denies any abdominal pain. Denies chest pain. Denies any recent sick contacts or traveling. She was found in the ED to have elevated creatinine above baseline as well as hyperkalemia with a potassium 6.5. EKG no spiked T waves does have a prolonged QRS, unknown baseline, troponin was unremarkable. She does complain of some foot swelling the past couple months. And some occasional shortness of breath. She takes metformin and Tradjenta for diabetes. Barium swallow was done in the ED which was unremarkable chest x-ray with some pulmonary edema. Denies any cardiac history. Is not on any potassium supplements, but is on lisinopril. 10/16 Feeling better today. Diuresed well last night however she drank quite a bit. Diarrhea after Kayexalate. Slept okay. No other events. 10/17 Patient seen exained HR elevated, renal function and creat improved labs stable, pt has pancytopenia, as well as low vit b12 levels. patient also notes she has had elevated heart rate for a long time, CT shwos she has no e/o infection, but likely cirrhosis, splenomegaly resume verapramil for now to see how her HR responds. SHe does not eat well, only peanut butter, sandwich, has some aversion to food. Refused GI evaluation at this time. 10/18 Patient seen examined, on lovenox for PE Creat improving, labs stable, still has persistent pancytopenia CT also shows findings suggestive of Cirrhosis, pt does not drink etoh, never been a heavy drinker, check hepatitis panel echo showed severe chf, therefore verapramil was switched to metoprolol Reviewed with her the need to transfer to higher center to get a VQ scan to r/o PE, the patient declined transfer, would rather take anticoagulation and do the needed study as outpatient. Understands the risk of anticoagulation. xfer to med surg status. 10/19-no evidence of PE on CT anterior chest however large thyroid goiter. Discussed with surgery. No immediate intervention indicated at this time per surgery. 10/20-patient doing markedly better. Feels better than baseline. Requesting discharge. Urine cultures negative. Antibiotics discontinued. Provided instructions for follow-up with PCP/nephrology/cardiology and hematology for pre-existing medical issue management. Also in light of depressed EF of 25% verapamil was discontinued and started on extended release metoprolol. I also recommend PCP to consider OK inhibitor/further optimization of CHF management as outpatient. Discharge diagnosis: . - Time Spent with Patient Total time spent providing and/or coordinating discharge services: Greater than 30 minutes Medical - DS: Exam - Constitutional Vitals: Vital Signs Temp Pulse Resp BP BP Pulse Ox 10/20/18 06:49 97.1 F 20 122/62 95 10/20/18 04:20 97.7 F 62 16 117/57 98 10/19/18 23:43 98.1 F 82 18 111/58 94 10/19/18 21:00 97.8 F 89 17 110/63 95 10/19/18 20:00 17 10/19/18 15:49 98.3 F 20 113/57 94 10/19/18 11:50 98.2 F 16 115/57 95 Intake and Output 10/19/18 10/20/18 10/20/18 21:59 05:59 13:59 Intake Total 380 350 240 Output Total 250 Balance 380 350 -10 Intake: Nourishment/Supplement quantity 200 (ml) Oral 180 350 240 Output: Void Amount 250 Other: Meal Lunch Breakfast Percent of Meal Consumed 95 90 Feeding Ability Independent Independent Nourishment/Supplement name alize Urine Color Dark Yellow Weight 195 lb 8 oz Medical - DS: Data Labs on day of discharge: Labs from last 24 hours 10/20/18 10/20/18 04:51 04:51 WBC 2.2 L RBC 2.21 L Hgb 8.2 L Hct 25.1 L MCV 113.5 H MCH 37.1 H MCHC 32.7 RDW 21.6 H Plt Count 75 L MPV 7.6 Gran % 35.3 L Lymph % (Auto) 42.7 [place] % (Auto) 15.8 H Eos % (Auto) 5.5 Baso % (Auto) 0.7 Gran # 0.8 L* Lymph # (Auto) 0.9 L [place] # (Auto) 0.3 Eos # (Auto) 0.1 Baso # (Auto) 0 Sodium 140 Potassium 3.7 Chloride 104 Carbon Dioxide 27 Anion Gap 9.0 BUN 25 H Creatinine 1.2 H GFR Calculation 45 Glucose 142 H Uric Acid 6.4 Calcium 8.8 Phosphorus 2.9 Magnesium 1.9 Total Bilirubin 0.6 Direct Bilirubin 0.3 GGT 216 H AST 46 H ALT 25 Alkaline Phosphatase 156 H Lactate Dehydrogenase 216 Total Protein 5.5 L Albumin 2.7 L Globulin 2.8 Albumin/Globulin Ratio 1.0 Triglycerides 71 Medical - DS: A/P - Patient/Caregiver Discharge Instructions Activity: increase activity as tolerated Diet: Renal/Consistent Carbs Additional Instructions: Follow-up PCP in 5 days Follow-up nephrology in 5-7 days I recommend outpatient follow-up with cardiology for CHF management in the next 7-14 days I recommend primary care physician to schedule appointment with hematology for pancytopenia evaluation Outpatient surgery consult for large goiter if worsening dysphagia or pressure symptoms I recommend primary care physician to check CBC BMP UA as a posthospital follow- up Discontinue verapamil and start metoprolol XL in light of congestive heart failure with depressed EF 25%. I recommend PCP to Consider initiation of OK inhibitor in the setting of systolic CHF Continue aggressive bowel regimen to prevent constipation Continue fall precautions All meals on chair sitting upright at 90 degrees to prevent aspiration Return to ER if worsening fever chills shortness of breath, diarrhea, bleeding Refrain from smoking and alcohol Continue CC/renal diet and activity as advised Discussed importance of medication adherence Please review medication list with patient prior to discharge Please schedule follow-up with PCP/Providers prior to discharge and provide printouts Prescriptions: Metoprolol Succinate [Toprol Xl] 50 mg PO DAILY #30 tab.xl.24h - Follow up Plan Follow up with: Patito Davila MD [Primary Care Provider] - Disposition: Home, Self-Care Prognosis: Fair Rehab Potential: Fair I certify that the patient requires SNF services: No Overall status at discharge: patient is progressing back to baseline Medical - DS: Qual - VTE Deep Vein Thrombosis/Pulmonary Embolism Present on Admission: No
[2018-10-23] MEDS ORDERED: CYANOCOBALAMIN 1,000 MCG/ML VIAL IM SCH (12:00)
[2018-10-25 08:23] LABS: Methylmalonic Acid 10050 nmol/L (87-318)
== END 2018-10-20 14:30 | disposition home or self-care (01) | DRG 291 ==
LOC: ED 14:59 → ICU 19:38 → MEDSUR 10-18 13:50
PROVIDERS: ADMIT Internal Medicine; ATTEND Internal Medicine